=== PATIENT | male | born 1940 | race Caucasian/White ===

== ENCOUNTER 2018-07-23 15:04 | Inpatient (IN) | payer MEDICARE, OTHER ==
--- NOTE | 2018-07-23 16:37 | EDM.PDOC ---
ED HPI GENERAL MEDICAL PROBLEM - General Chief Complaint: Abdominal Pain Stated Complaint: LOW ABD PAIN Time Seen by Provider: 07/23/18 16:13 Source of Information: Reports: Patient, Family (), RN Notes Reviewed History Limitations: Reports: No Limitations - History of Present Illness INITIAL COMMENTS - FREE TEXT/NARRATIVE: The patient states that he developed lower abdominal/pelvic pain around 13:00 this afternoon. It is sharp in character. It is constant. The patient has not identified any modifiers. While here in the ED, the patient states that the pain is now radiating to his lower midline back. The patient reports decreased urine output for about one day, but denies associated dysuria, urinary urgency, or frequency. No recent fever. No recent nausea, vomiting, constipation, or diarrhea. No prior similar symptoms. The patient denies trying any [id number] or home remedies to treat his symptoms. The patient's last oral solid food was around noon today. The patient's PCP is Dr. Hunter Robbins. Lower Abdominal Pain Score (Numeric/FACES): 9 - Related Data Allergies Allergy/AdvReac Type Severity Reaction Status Date / Time No Known Allergies Allergy Verified 07/23/18 15:15 Home Meds: Home Meds Aspirin [Halfprin] 1 tab PO DAILY 09/27/14 [History] Enalapril [Vasotec] 1 tab PO DAILY 09/27/14 [History] hydroCHLOROthiazide [Hydrochlorothiazide] 1 tab PO DAILY 09/27/14 [History] Past Medical History Cardiovascular History: Reports: Hypertension Gastrointestinal History: Reports: Colon Polyp, Diverticulosis, GERD Genitourinary History: Reports: BPH Musculoskeletal History: Reports: Osteoarthritis Psychiatric History: Reports: Anxiety - Past Surgical History HEENT Surgical History: Reports: Detached Retina (right) GI Surgical History: Reports: Hernia, Inguinal (left x 2, right x 1) Male Surgical History: Reports: TURP-Transurethral Resection of Prostate Social & Family History - Tobacco Use Smoking Status *Q: Never Smoker - Caffeine Use Caffeine Use: Reports: None - Alcohol Use Alcohol Use History: No - Recreational Drug Use Recreational Drug Use: No - Living Situation & Occupation Living situation: Reports: , with Spouse Occupation: Retired ED ROS GENERAL - Review of Systems Review Of Systems: ROS reveals no pertinent complaints other than HPI. ED EXAM, GI/ABD - Physical Exam Exam: See Below Exam Limited By: No Limitations General Appearance: Alert, WD/WN, No Apparent Distress Eyes: Bilateral: Normal Appearance, EOMI Ears: Normal External Exam, Hearing Grossly Normal Nose: Normal Inspection Throat/Mouth: Normal Inspection, Normal Lips, Normal Voice, No Airway Compromise Head: Atraumatic, Normocephalic Neck: Normal Inspection, Full Range of Motion Respiratory/Chest: No Respiratory Distress, Lungs Clear, Normal Breath Sounds, No Accessory Muscle Use Cardiovascular: Normal Peripheral Pulses, Regular Rate, Rhythm, No Edema, No Gallop, No JVD, No Murmur, No Rub GI/Abdominal Exam: Normal Bowel Sounds, Soft, Non-Tender, No Organomegaly, No Distention, No Abnormal Bruit, No Mass (Male) Exam: Other (Large, firm right inguinal hernia, that I an unable to produce without causing excessive pain) Rectal (Males) Exam: Deferred Back Exam: Normal Inspection, Full Range of Motion. No: CVA Tenderness (L), CVA Tenderness (R) Extremities: Normal Inspection, Normal Range of Motion, No Pedal Edema, Normal Capillary Refill Neurological: Alert, Oriented, Normal Cognition, No Motor/Sensory Deficits Psychiatric: Normal Affect Skin Exam: Warm, Dry, Intact, Normal Color, No Rash Course - Vital Signs Last Recorded V/S: Last Vital Signs Temp 36.8 C 07/23/18 15:11 Pulse 59 L 07/23/18 15:11 Resp 18 07/23/18 15:11 BP 130/76 07/23/18 15:11 Pulse Ox 99 07/23/18 15:11 - Orders/Labs/Meds Orders: Active Orders 24 hr Category Date Time Status Bladder Scan [RC] ASDIRECTED Care 07/23/18 16:18 Active CBC WITH MANUAL DIFF [HEME] Stat Lab 07/23/18 16:05 Results Sodium Chloride 0.9% [Normal Saline] 1,000 ml Med 07/23/18 16:45 Active IV ASDIRECTED Medication Orders Sodium Chloride (Normal Saline) 1,000 mls @ 100 mls/hr IV ASDIRECTED [facility]ON Labs: Laboratory Tests 07/23/18 07/23/18 07/23/18 Range/Units 15:32 16:05 17:00 WBC 7.35 (4.23-9.07) K/mm3 RBC 5.25 (4.63-6.08) M/mm3 Hgb 16.0 (13.7-17.5) gm/L Hct 46.0 (40.1-51.0) % MCV 87.6 (79.0-92.2) fl MCH 30.5 (25.7-32.2) pg MCHC 34.8 (32.2-35.5) g/dl RDW Std Deviation 39.6 (35.1-43.9) fL Plt Count 158 L (163-337) K/mm3 MPV 8.8 L (9.4-12.3) fl Sodium 141 (136-145) mEq/L Potassium 3.8 (3.5-5.1) mEq/L Chloride 102 (98-107) mEq/L Carbon Dioxide 29 (21-32) mEq/L Anion Gap 13.8 (5-15) BUN 25 H (7-18) mg/dL Creatinine 1.3 (0.7-1.3) mg/dL Est Cr Clr Drug Dosing 52.23 mL/min Estimated GFR (MDRD) 54 (>60) mL/min BUN/Creatinine Ratio 19.2 H (14-18) Glucose 107 (83-115) mg/dL Calcium 9.5 (8.5-10.1) mg/dL Total Bilirubin 0.7 (0.2-1.0) mg/dL AST 26 (15-37) U/L ALT 39 (16-63) U/L Alkaline Phosphatase 59 (46-116) U/L Total Protein 7.5 (6.4-8.2) g/dl Albumin 4.1 (3.4-5.0) g/dl Globulin 3.4 gm/dL Albumin/Globulin Ratio 1.2 (1-2) Urine Color Yellow (Yellow) Urine Appearance Clear (Clear) Urine pH 7.0 (5.0-8.0) Ur Specific Waldo 1.020 (1.005-1.030) Urine Protein Negative (Negative) Urine Glucose (UA) Negative (Negative) Urine Ketones 1+ H (Negative) Urine Occult Blood Trace-lysed H (Negative) Urine Nitrite Negative (Negative) Urine Bilirubin Negative (Negative) Urine Urobilinogen 0.2 (0.2-1.0) Ur Leukocyte Esterase Negative (Negative) Urine RBC 0-5 (0-5) /hpf Urine WBC 0-5 (0-5) /hpf Ur Epithelial Cells Not seen (0-5) /hpf Urine Bacteria Rare (FEW) /hpf Urine Mucus Moderate H (FEW) /hpf Meds: Medications Generic Name Dose Route Start Last Admin Trade Name Ben PRN Reason Stop Dose Admin Sodium Chloride 1,000 mls @ 100 mls/hr 07/23/18 16:45 Normal Saline IV ASDIRECTED [facility] - Re-Assessments/Exams Free Text/Narrative Re-Assessment/Exam: 07/23/18 16:32 The patient appears to have a right anal hernia, likely incarcerated, as the cause of his symptoms. Case discussed with Dr. Nicole at 16:30. He will come to the ED to evaluate the patient. Hopefully, he will be able to reduce the hernia here in the ED, otherwise, the patient will need to go to the OR. I will order some IV fluid, and keep the patient npo. 07/23/18 17:17 Dr. Nicole is here. He has evaluated the patient, and will need to take the patient to the operating room. Departure - Departure Time of Disposition: 17:17 Disposition: DC/Tfer to [facility] Condition: Fair Clinical Impression: Incarcerated right inguinal hernia - Discharge Information *PRESCRIPTION DRUG MONITORING PROGRAM REVIEWED*: Not Applicable *COPY OF PRESCRIPTION DRUG MONITORING REPORT IN PATIENT REINA: Not Applicable Referrals: Hunter Robbins Jr, MD [Primary Care Provider] - Forms: ED Department Discharge - My Orders Last 24 Hours: My Active Orders 07/23/18 16:05 CBC WITH MANUAL DIFF [HEME] Stat 07/23/18 16:18 Bladder Scan [RC] ASDIRECTED 07/23/18 16:45 Sodium Chloride 0.9% [Normal Saline] 1,000 ml IV ASDIRECTED - Assessment/Plan Last 24 Hours: My Active Orders 07/23/18 16:05 CBC WITH MANUAL DIFF [HEME] Stat 07/23/18 16:18 Bladder Scan [RC] ASDIRECTED 07/23/18 16:45 Sodium Chloride 0.9% [Normal Saline] 1,000 ml IV ASDIRECTED
[2018-07-23] MEDS ORDERED: Sodium Chloride 0.9% 1,000 ML IV SCH (16:45)
[2018-07-23] MEDS ORDERED: Lidocaine 1% 4 ML ONE (17:39)
[2018-07-23] MEDS ORDERED: fentaNYL 250 MCG/5 ML SDV ONE (17:39)
[2018-07-23] MEDS ORDERED: Propofol 200 MG/20 ML SDV ONE ×2 (17:39→18:28)
[2018-07-23] MEDS ORDERED: Lidocaine 1% 50 ML MDV ONE (17:44)
[2018-07-23] MEDS ORDERED: Bupivacaine 0.5% 30 ML SDV ONE (17:44)
--- NOTE | 2018-07-23 17:52 | PCM.PREANE ---
Preanesthetic Assessment - Anesthesia/Transfusion/Family Hx Anesthesia History: Prior Anesthesia Without Reaction Family History of Anesthesia Reaction: No Transfusion History: No Prior Transfusion(s) - Review of Systems General: Fatigue Pulmonary: No Symptoms Cardiovascular: No Symptoms Gastrointestinal: Abdominal Pain (Lower abdomen), Nausea Neurological: No Symptoms Other: Reports: None - Physical Assessment NPO Status Date: 07/23/18 NPO Status Time: 12:30 Pulse: 59 O2 Sat by Pulse Oximetry: 99 Respiratory Rate: 18 Blood Pressure: 130/76 Temperature: 36.8 C Vital Signs: Last Vital Signs Temp 36.8 C 07/23/18 15:11 Pulse 59 L 07/23/18 15:11 Resp 18 07/23/18 15:11 BP 130/76 07/23/18 15:11 Pulse Ox 99 07/23/18 15:11 Height: 1.83 m Weight: 90.718 kg ASA Class: 2 Mental Status: Alert & Oriented x3 Airway Class: Mallampati = 1 Dentition: Reports: Missing Tooth/Teeth Thyro-Mental Finger Breadths: 3 Mouth Opening Finger Breadths: 3 ROM/Head Extension: Full Lungs: Clear to Auscultation, Normal Respiratory Effort Cardiovascular: Regular Rate, Regular Rhythm - Lab Values: Laboratory Last Values WBC 7.35 K/mm3 (4.23-9.07) 07/23/18 16:05 RBC 5.25 M/mm3 (4.63-6.08) 07/23/18 16:05 Hgb 16.0 gm/L (13.7-17.5) 07/23/18 16:05 Hct 46.0 % (40.1-51.0) 07/23/18 16:05 MCV 87.6 fl (79.0-92.2) 07/23/18 16:05 MCH 30.5 pg (25.7-32.2) 07/23/18 16:05 MCHC 34.8 g/dl (32.2-35.5) 07/23/18 16:05 RDW Std Deviation 39.6 fL (35.1-43.9) 07/23/18 16:05 Plt Count 158 K/mm3 (163-337) L 07/23/18 16:05 MPV 8.8 fl (9.4-12.3) L 07/23/18 16:05 Neutrophils % (Manual) 85 % (40-60) H 07/23/18 16:05 Band Neutrophils % 0 % (0-10) 07/23/18 16:05 Lymphocytes % (Manual) 14 % (20-40) L 07/23/18 16:05 Atypical Lymphs % 0 % 07/23/18 16:05 Monocytes % (Manual) 1 % (2-10) L 07/23/18 16:05 Eosinophils % (Manual) 0 % (0.8-7.0) L 07/23/18 16:05 Basophils % (Manual) 0 (0.2-1.2) L 07/23/18 16:05 Platelet Estimate Adequate 07/23/18 16:05 RBC Morph Comment Normal 07/23/18 16:05 Sodium 141 mEq/L (136-145) 07/23/18 17:00 Potassium 3.8 mEq/L (3.5-5.1) 07/23/18 17:00 Chloride 102 mEq/L (98-107) 07/23/18 17:00 Carbon Dioxide 29 mEq/L (21-32) 07/23/18 17:00 Anion Gap 13.8 (5-15) 07/23/18 17:00 BUN 25 mg/dL (7-18) H 07/23/18 17:00 Creatinine 1.3 mg/dL (0.7-1.3) 07/23/18 17:00 Est Cr Clr Drug Dosing 52.23 mL/min 07/23/18 17:00 Estimated GFR (MDRD) 54 mL/min (>60) 07/23/18 17:00 BUN/Creatinine Ratio 19.2 (14-18) H 07/23/18 17:00 Glucose 107 mg/dL (83-115) 07/23/18 17:00 Calcium 9.5 mg/dL (8.5-10.1) 07/23/18 17:00 Total Bilirubin 0.7 mg/dL (0.2-1.0) 07/23/18 17:00 AST 26 U/L (15-37) 07/23/18 17:00 ALT 39 U/L (16-63) 07/23/18 17:00 Alkaline Phosphatase 59 U/L (46-116) 07/23/18 17:00 Total Protein 7.5 g/dl (6.4-8.2) 07/23/18 17:00 Albumin 4.1 g/dl (3.4-5.0) 07/23/18 17:00 Globulin 3.4 gm/dL 07/23/18 17:00 Albumin/Globulin Ratio 1.2 (1-2) 07/23/18 17:00 Urine Color Yellow (Yellow) 07/23/18 15:32 Urine Appearance Clear (Clear) 07/23/18 15:32 Urine pH 7.0 (5.0-8.0) 07/23/18 15:32 Ur Specific Elmer 1.020 (1.005-1.030) 07/23/18 15:32 Urine Protein Negative (Negative) 07/23/18 15:32 Urine Glucose (UA) Negative (Negative) 07/23/18 15:32 Urine Ketones 1+ (Negative) H 07/23/18 15:32 Urine Occult Blood Trace-lysed (Negative) H 07/23/18 15:32 Urine Nitrite Negative (Negative) 07/23/18 15:32 Urine Bilirubin Negative (Negative) 07/23/18 15:32 Urine Urobilinogen 0.2 (0.2-1.0) 07/23/18 15:32 Ur Leukocyte Esterase Negative (Negative) 07/23/18 15:32 Urine RBC 0-5 /hpf (0-5) 07/23/18 15:32 Urine WBC 0-5 /hpf (0-5) 07/23/18 15:32 Ur Epithelial Cells Not seen /hpf (0-5) 07/23/18 15:32 Urine Bacteria Rare /hpf (FEW) 07/23/18 15:32 Urine Mucus Moderate /hpf (FEW) H 07/23/18 15:32 - Allergies Allergies/Adverse Reactions: Allergies Allergy/AdvReac Type Severity Reaction Status Date / Time No Known Allergies Allergy Verified 07/23/18 15:15 - Anesthesia Plan Pre-Op Medication Ordered: None - Acknowledgements Anesthesia Type Planned: MAC Pt an Appropriate Candidate for the Planned Anesthesia: Yes Alternatives and Risks of Anesthesia Discussed w Pt/Guardian: Yes Pt/Guardian Understands and Agrees with Anesthesia Plan: Yes PreAnesthesia Questionnaire - Past Health History Medical/Surgical History: Denies Medical/Surgical History Cardiovascular History: Reports: Hypertension Gastrointestinal History: Reports: Colon Polyp, Diverticulosis, GERD Genitourinary History: Reports: BPH Musculoskeletal History: Reports: Osteoarthritis Psychiatric History: Reports: Anxiety - Past Surgical History HEENT Surgical History: Reports: Detached Retina (right) GI Surgical History: Reports: Hernia, Inguinal (left x 2, right x 1) Male Surgical History: Reports: TURP-Transurethral Resection of Prostate - SUBSTANCE USE Smoking Status *Q: Never Smoker Tobacco Use Within Last Twelve Months: No Second Hand Smoke Exposure: No Days Per Week of Alcohol Use: 0 Number of Drinks Per Day: 0 Total Drinks Per Week: 0 Recreational Drug Use History: No - HOME MEDS Home Medications: Home Meds Aspirin [Halfprin] 81 mg PO DAILY 09/27/14 [History] Enalapril [Vasotec] 10 mg PO DAILY 09/27/14 [History] hydroCHLOROthiazide [Hydrochlorothiazide] 12.5 mg PO DAILY 09/27/14 [History] - CURRENT (IN HOUSE) MEDS Current Meds: Current Medications Sodium Chloride (Normal Saline) 1,000 mls @ 100 mls/hr IV ASDIRECTED [facility] Last Admin: 07/23/18 16:45 Dose: 100 mls/hr Discontinued Medications Bupivacaine HCl (Marcaine 0.5%) Confirm Administered Dose 30 ml .ROUTE .STK-MED ONE Stop: 07/23/18 17:45 Fentanyl (Sublimaze) Confirm Administered Dose 250 mcg .ROUTE .STK-MED ONE Stop: 07/23/18 17:40 Lidocaine HCl (Xylocaine-Mpf 1%) Confirm Administered Dose 4 mls @ as directed .ROUTE .STK-MED ONE Stop: 07/23/18 17:40 Lidocaine HCl (Xylocaine 1%) Confirm Administered Dose 50 ml .ROUTE .STK-MED ONE Stop: 07/23/18 17:45 Propofol (Diprivan 20 Ml) Confirm Administered Dose 200 mg .ROUTE .STK-MED ONE Stop: 07/23/18 17:40
[2018-07-23] MEDS ORDERED: Ketamine 500 mg/10 ML MDV ONE (18:06)
[2018-07-23] MEDS ORDERED: ceFAZolin 1 GM Vial ONE (18:16)
[2018-07-23] MEDS ORDERED: Rocuronium 50 MG/5 ML Vial ONE (19:04)
[2018-07-23] MEDS ORDERED: Lactated Ringers 1,000 ML ONE (19:04)
[2018-07-23] MEDS ORDERED: ePHEDrine/Normal Saline 25 MG/5 ML Syringe ONE (19:11)
--- NOTE | 2018-07-23 19:19 | HP ---
DATE OF ADMISSION: 07/23/2018 HISTORY OF PRESENT ILLNESS: This is a 78-year-old male at 1 o'clock this afternoon developed pain in the right groin. It started as a mass and then pain and was not improving, so he came into the emergency room where an incarcerated inguinal hernia was noted. He had had a previous repair in that area about 20 years ago. He was seen by his family doctor and noted a small recurrence, but was opted to wait and watch. He has also had hernia repairs x2 on the left side by . No mesh was used. PAST MEDICAL HISTORY: Current medical problems are hypertension, history of colonic polyps, BPH, osteoarthritis, history of anxiety. CURRENT MEDICATIONS: Reviewed per medication reconciliation form. PAST SURGICAL HISTORY: He has had a TURP, which has worked well. 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 SOCIAL HISTORY: Never smoked. ALLERGIES: No known allergies. REVIEW OF SYSTEMS: No chest pain, shortness of breath, cough, hoarseness, wheezing, fainting, weakness, numbness, convulsions, nausea, vomiting, or indigestion. PHYSICAL EXAMINATION: VITAL SIGNS: Temperature 36, pulse 59, respirations 18, blood pressure 130/76. HEENT: EYES: Sclerae white. Extraocular muscle motion normal. Oral Cavity: Healthy mucous membrane with mouth and tongue. NECK: Supple. No nodes. No thyromegaly. LUNGS: Clear. No rales, rhonchi, fremitus, or dullness. CARDIAC: Heart tones are regular rate. No S3, S4, or jugular venous distention. ABDOMEN: Soft. No tenderness, guarding, or rebound. The inguinal region shows 2 surgical scars on both inguinal sides. A right-sided bulge, which is tender on pushing, representing an inguinal hernia recurrence, which is incarcerated. EXTREMITIES: Upper and Lower Extremities: No angulation deformities. No sensorineural deficit. PSYCHIATRIC: Normal. NEUROLOGIC: Moves all 4 extremities. Cranial Nerves 1, 2, 3 through 12 intact. LABORATORY DATA: White count of 7000, hemoglobin 15, platelet count is a little low at 158. The estimated creatinine clearance is 54, creatinine 1.3, BUN is 25. Electrolytes normal. ASSESSMENT: Incarcerated right inguinal hernia. RECOMMENDATION: Exploring the right inguinal area and repair without mesh. Risks and complications were discussed, the patient understands and consents. MMODAL /[id number]
[2018-07-23] MEDS ORDERED: Ketorolac 30 MG/ML SDV ONE (20:07)
[2018-07-23] MEDS ORDERED: fentaNYL 100 MCG/2 ML SDV ONE (20:09)
[2018-07-23] MEDS ORDERED: fentaNYL 100 MCG/2 ML SDV IVPUSH PRN (20:26)
--- NOTE | 2018-07-23 20:27 | PCM.POSTAN ---
POST ANESTHESIA ASSESSMENT - MENTAL STATUS Mental Status: Alert, Oriented - VITAL SIGNS Pulse Rate: 80 SaO2: 94 Resp Rate: 10 Blood Pressure: 120/73 Temperature: 36.5 C - RESPIRATORY Respiratory Status: Respiratory Rate WNL, Airway Patent, O2 Saturation Stable, Supplemental Oxygen - CARDIOVASCULAR CV Status: Pulse Rate WNL, Blood Pressure Stable - GASTROINTESTINAL GI Status: No Symptoms - PAIN Pain Score: 0 - POST OP HYDRATION Hydration Status: Adequate & Stable - OBSERVATIONS Free Text/Narrative:: no anesthesia complications noted
--- NOTE | 2018-07-23 20:40 | PCM.OPNOTE ---
- General Post-Op/Procedure Note Date of Surgery/Procedure: 07/23/18 Operative Procedure(s): resection of small bowel and Dimas repair of femoral hernia Pre Op Diagnosis: rt inguinal hernia incacerated Post-Op Diagnosis: rt femeral hernia with incarceration and ilium Anesthesia Technique: General ET Tube Primary Surgeon: Torrey Nicole EBL in mLs: 50 Complications: None Condition: Good
[2018-07-23] MEDS ORDERED: HYDROmorphone 0.5 MG/0.5 ML Syringe IVPUSH PRN (21:07)
[2018-07-23] MEDS ORDERED: Ondansetron 4 MG/2 ML SDV IVPUSH PRN (21:07)
[2018-07-23] MEDS: Lactated Ringers 1,000 ML IV SCH (23:32)
--- NOTE | 2018-07-24 02:12 | OR ---
DATE OF OPERATION: 07/23/2018 SURGEON: Torrey Nicole MD PREOPERATIVE DIAGNOSIS: Incarcerated right inguinal hernia. POSTOPERATIVE DIAGNOSIS: Incarcerated femoral hernia with a knuckle of ileum. OPERATION PERFORMED: Resection of small bowel with anastomosis and Dimas femoral hernia repair. ANESTHESIA: Done under general anesthetic. ESTIMATED BLOOD LOSS: About 50 mL. DESCRIPTION OF PROCEDURE: The patient was taken to the operating room, placed in a supine position, connected to monitoring equipment, given IV sedation, antibiotics were given, and the inguinal region was then clipped and prepped with chlorhexidine alcohol prep, draped off in a sterile fashion. 0.5% Marcaine and 1% Xylocaine were infiltrated in the skin and deeper tissues as needed. The transverse previous incision was used and carried down by sharp dissection to the bulge in the inguinal region. Soft tissues were dissected free from the bulge and then the bulge was then opened up, showing a knuckle of gut, ileum and femoral hernia, which was tightly incarcerated. Loosening the femoral hernia by incising the inguinal ligament superiorly allowed the bowel to be mobilized, and using a ANNE MARIE stapler, the bowel was resected. The mesentery was taken down between curved hemostats, however, there was enough mobility of the bowel to allow proper anastomosis. It was elected at this time to intubate the patient and paralyze him. Once this was done, a transverse incision was made and enlarged in the inguinal ligament and this allowed better mobilization of the small bowel. The mesentery was then suture ligated, clamps were removed, and good hemostasis was obtained. Using the ANNE MARIE stapler, a [id number] anastomosis was accomplished by first taking the nipple off the antimesenteric border and sliding the 2 limbs and a ANNE MARIE 55 stapler in there and then bringing together and firing them. The bowel was then inspected, no bleeding was noted, and then a TA60 stapler was used to close this opening. This was then inspected and found to be healthy, and this completed the intraabdominal portion of the procedure. The bowel was allowed to fall back into the abdominal cavity. The area was irrigated and the instruments used for the bowel were then discarded. Surgeons re-gowned and re-gloved and the peritoneum was then closed with a running 3-0 Vicryl suture. With this completed, the Dimas hernia repair was then accomplished by first bringing the transverse incision of the inguinal ligament together with a running #1 0 PDS, then bringing the transversalis fascia and the inguinal ligament down to Mitesh's ligament with interrupted 2-0 Ethibond sutures. These were then tied once they are in place and a transition suture placed. A good repair was accomplished. Soft tissues were then irrigated and brought together with a running 3-0 Vicryl suture and the skin with a running subdermal 4-0 Dexon suture. Steri-Strips and sterile dressing were placed. The patient tolerated the procedure and sent to recovery room in a stable condition. SHAYY /[id number]
[2018-07-24] MEDS ORDERED: Lidocaine 2% Jelly 10 ML Urojet ONE (04:32)
[2018-07-24] MEDS ORDERED: HYDROmorphone 0.5 MG/0.5 ML Syringe IVPUSH PRN (04:44)
[2018-07-24] MEDS ORDERED: HYDROmorphone 1 MG/ML Syringe IV PRN (04:50)
--- NOTE | 2018-07-24 05:06 | PCM.SURGPN ---
- General Info Date of Service: 07/24/18 - Review of Systems Gastrointestinal: Reports: Other (pt was assisted to the bathroom when he felt faint and was placed on the floor and later placed in bed his VS showed BP of 70 and he then passed a small amount of bright red blood. This happened at 0345 I was called ) - Patient Data Vitals - Most Recent: Last Vital Signs Temp 99.0 F 07/24/18 02:12 Pulse 72 07/24/18 04:03 Resp 18 07/24/18 03:55 BP 116/81 07/24/18 04:03 Pulse Ox 99 07/24/18 04:03 Weight - Most Recent: 90.718 kg Lab Results Last 24 Hrs: Laboratory Results - last 24 hr 07/23/18 07/23/18 07/23/18 Range/Units 15:32 16:05 17:00 WBC 7.35 (4.23-9.07) K/mm3 RBC 5.25 (4.63-6.08) M/mm3 Hgb 16.0 (13.7-17.5) gm/L Hct 46.0 (40.1-51.0) % MCV 87.6 (79.0-92.2) fl MCH 30.5 (25.7-32.2) pg MCHC 34.8 (32.2-35.5) g/dl RDW Std Deviation 39.6 (35.1-43.9) fL Plt Count 158 L (163-337) K/mm3 MPV 8.8 L (9.4-12.3) fl Neutrophils % (Manual) 85 H (40-60) % Band Neutrophils % 0 (0-10) % Lymphocytes % (Manual) 14 L (20-40) % Atypical Lymphs % 0 % Monocytes % (Manual) 1 L (2-10) % Eosinophils % (Manual) 0 L (0.8-7.0) % Basophils % (Manual) 0 L (0.2-1.2) Platelet Estimate Adequate RBC Morph Comment Normal Sodium 141 (136-145) mEq/L Potassium 3.8 (3.5-5.1) mEq/L Chloride 102 (98-107) mEq/L Carbon Dioxide 29 (21-32) mEq/L Anion Gap 13.8 (5-15) BUN 25 H (7-18) mg/dL Creatinine 1.3 (0.7-1.3) mg/dL Est Cr Clr Drug Dosing 52.23 mL/min Estimated GFR (MDRD) 54 (>60) mL/min BUN/Creatinine Ratio 19.2 H (14-18) Glucose 107 (83-115) mg/dL Calcium 9.5 (8.5-10.1) mg/dL Total Bilirubin 0.7 (0.2-1.0) mg/dL AST 26 (15-37) U/L ALT 39 (16-63) U/L Alkaline Phosphatase 59 (46-116) U/L Total Protein 7.5 (6.4-8.2) g/dl Albumin 4.1 (3.4-5.0) g/dl Globulin 3.4 gm/dL Albumin/Globulin Ratio 1.2 (1-2) Urine Color Yellow (Yellow) Urine Appearance Clear (Clear) Urine pH 7.0 (5.0-8.0) Ur Specific [place] 1.020 (1.005-1.030) Urine Protein Negative (Negative) Urine Glucose (UA) Negative (Negative) Urine Ketones 1+ H (Negative) Urine Occult Blood Trace-lysed H (Negative) Urine Nitrite Negative (Negative) Urine Bilirubin Negative (Negative) Urine Urobilinogen 0.2 (0.2-1.0) Ur Leukocyte Esterase Negative (Negative) Urine RBC 0-5 (0-5) /hpf Urine WBC 0-5 (0-5) /hpf Ur Epithelial Cells Not seen (0-5) /hpf Urine Bacteria Rare (FEW) /hpf Urine Mucus Moderate H (FEW) /hpf 07/24/18 Range/Units 04:00 WBC (4.23-9.07) K/mm3 RBC (4.63-6.08) M/mm3 Hgb 13.2 L (13.7-17.5) gm/L Hct 38.6 L (40.1-51.0) % MCV (79.0-92.2) fl MCH (25.7-32.2) pg MCHC (32.2-35.5) g/dl RDW Std Deviation (35.1-43.9) fL Plt Count (163-337) K/mm3 MPV (9.4-12.3) fl Neutrophils % (Manual) (40-60) % Band Neutrophils % (0-10) % Lymphocytes % (Manual) (20-40) % Atypical Lymphs % % Monocytes % (Manual) (2-10) % Eosinophils % (Manual) (0.8-7.0) % Basophils % (Manual) (0.2-1.2) Platelet Estimate RBC Morph Comment Sodium (136-145) mEq/L Potassium (3.5-5.1) mEq/L Chloride (98-107) mEq/L Carbon Dioxide (21-32) mEq/L Anion Gap (5-15) BUN (7-18) mg/dL Creatinine (0.7-1.3) mg/dL Est Cr Clr Drug Dosing mL/min Estimated GFR (MDRD) (>60) mL/min BUN/Creatinine Ratio (14-18) Glucose (83-115) mg/dL Calcium (8.5-10.1) mg/dL Total Bilirubin (0.2-1.0) mg/dL AST (15-37) U/L ALT (16-63) U/L Alkaline Phosphatase (46-116) U/L Total Protein (6.4-8.2) g/dl Albumin (3.4-5.0) g/dl Globulin gm/dL Albumin/Globulin Ratio (1-2) Urine Color (Yellow) Urine Appearance (Clear) Urine pH (5.0-8.0) Ur Specific [place] (1.005-1.030) Urine Protein (Negative) Urine Glucose (UA) (Negative) Urine Ketones (Negative) Urine Occult Blood (Negative) Urine Nitrite (Negative) Urine Bilirubin (Negative) Urine Urobilinogen (0.2-1.0) Ur Leukocyte Esterase (Negative) Urine RBC (0-5) /hpf Urine WBC (0-5) /hpf Ur Epithelial Cells (0-5) /hpf Urine Bacteria (FEW) /hpf Urine Mucus (FEW) /hpf Med Orders - Current: Current Medications Enalapril Maleate (Vasotec) 10 mg PO DAILY [facility] Hydromorphone HCl (Dilaudid) 0.5 mg IVPUSH Q2H PRN PRN Reason: pain Last Admin: 07/24/18 04:52 Dose: 0.5 mg Lactated Ringer's (Ringers, Lactated) 1,000 mls @ 100 mls/hr IV ASDIRECTED [facility] Last Admin: 07/23/18 23:32 Dose: 100 mls/hr Ondansetron HCl (Zofran) 4 mg IVPUSH Q8H PRN PRN Reason: Nausea Discontinued Medications Bupivacaine HCl (Marcaine 0.5%) Confirm Administered Dose 30 ml .ROUTE .STK-MED ONE Stop: 07/23/18 17:45 Last Admin: 07/23/18 19:52 Dose: 10 ml Cefazolin Sodium (Ancef) Confirm Administered Dose 2 gm .ROUTE [email or web address] ONE Stop: 07/23/18 18:17 Ephedrine Sulfate (Ephedrine In Ns) Confirm Administered Dose 25 mg .ROUTE [email or web address] ONE Stop: 07/23/18 19:12 Fentanyl (Sublimaze) Confirm Administered Dose 250 mcg .ROUTE [email or web address] ONE Stop: 07/23/18 17:40 Fentanyl (Sublimaze) Confirm Administered Dose 100 mcg .ROUTE [email or web address] ONE Stop: 07/23/18 20:10 Fentanyl (Sublimaze) 50 mcg IVPUSH Q5M PRN PRN Reason: Pain Hydromorphone HCl (Dilaudid) 0.5 mg IVPUSH Q2H PRN PRN Reason: Pain Hydromorphone HCl (Dilaudid) 0.5 mg IV Q2H PRN PRN Reason: pain Sodium Chloride (Normal Saline) 1,000 mls @ 100 mls/hr IV ASDIRECTED [facility] Last Admin: 07/23/18 16:45 Dose: 100 mls/hr Lidocaine HCl (Xylocaine-Mpf 1%) Confirm Administered Dose 4 mls @ as directed .ROUTE [email or web address] ONE Stop: 07/23/18 17:40 Lactated Ringer's (Ringers, Lactated) Confirm Administered Dose 1,000 mls @ as directed .ROUTE [email or web address] ONE Stop: 07/23/18 19:05 Ketamine HCl (Ketalar) Confirm Administered Dose 500 mg .ROUTE [email or web address] ONE Stop: 07/23/18 18:07 Ketorolac Tromethamine (Toradol) Confirm Administered Dose 30 mg .ROUTE [email or web address] ONE Stop: 07/23/18 20:08 Lidocaine HCl (Xylocaine 1%) Confirm Administered Dose 50 ml .ROUTE [email or web address] ONE Stop: 07/23/18 17:45 Last Admin: 07/23/18 19:52 Dose: 10 ml Lidocaine HCl (Xylocaine 2% Jelly) Confirm Administered Dose 10 ml .ROUTE .STK- MED ONE Stop: 07/24/18 04:33 Propofol (Diprivan 20 Ml) Confirm Administered Dose 200 mg .ROUTE .STK-MED ONE Stop: 07/23/18 17:40 Propofol (Diprivan 20 Ml) Confirm Administered Dose 200 mg .ROUTE .STK-MED ONE Stop: 07/23/18 18:29 Rocuronium [place] (Zemuron) Confirm Administered Dose 50 mg .ROUTE .STK-MED ONE Stop: 07/23/18 19:05 - Exam Wound/Incisions: Healing Well, Dressing Dry and Intact General: Mild Distress GI/Abdominal Exam: Distended, Other (fullness arond the bladder (pt had not yet passed urine and bladder scan showed 450 cc ) Skin: Warm, Dry - Problem List Review Problem List Initiated/Reviewed/Updated: Yes - My Orders Last 24 Hours: Active Orders 24 hr Category Date Time Status Patient Status [ADT] Routine ADT 07/24/18 04:06 Active Ambulate [RC] ASDIRECTED Care 07/23/18 21:07 Active Antiembolic Devices [RC] QSHIFT Care 07/23/18 21:07 Active Bladder Scan [RC] ONETIME Care 07/23/18 16:18 Active Communication Order [RC] ASDIRECTED Care 07/23/18 20:50 Active Communication Order [RC] ROUTINE Care 07/23/18 20:26 Active Notify Provider [RC] ASDIRECTED Care 07/23/18 20:26 Active Oxygen Therapy [RC] ASDIRECTED Care 07/23/18 20:26 Active Pulse Oximetry [RC] ASDIRECTED Care 07/23/18 20:26 Active Turn, Cough, Deep Breathe [RC] .PRN Care 07/23/18 21:07 Active Nothing Per Oral Diet [DIET] Diet 07/23/18 Breakfast Active RED BLOOD CELLS LP [BBK] Routine Lab 07/24/18 04:00 Received TYPE AND SCREEN [BBK] Routine Lab 07/24/18 04:00 Received UA W/MICROSCOPIC [URIN] Routine Lab 07/24/18 04:39 Ordered Enalapril [Vasotec] Med 07/24/18 09:00 Active 10 mg PO DAILY HYDROmorphone [Dilaudid] Med 07/24/18 06:50 Active 0.5 mg IVPUSH Q2H PRN Lactated Ringers [Ringers, Lactated] 1,000 ml Med 07/23/18 21:00 Active IV ASDIRECTED Ondansetron [Zofran] Med 07/23/18 21:07 Active 4 mg IVPUSH Q8H PRN SCD [Sequential Compression Device] [OM.PC] Routine Oth 07/23/18 21:07 Ordered Schedule Procedure [COMM] Stat Oth 07/23/18 17:31 Ordered Transfuse RBC [Transfuse Red Blood Cells] [COMM] Stat Ot 07/24/18 04:01 Ordered Resuscitation Status Routine Resus Stat 07/23/18 21:44 Ordered Medication Orders Enalapril Maleate (Vasotec) 10 mg PO DAILY [facility] Hydromorphone HCl (Dilaudid) 0.5 mg IVPUSH Q2H PRN PRN Reason: pain Last Admin: 07/24/18 04:52 Dose: 0.5 mg Lactated Ringer's (Ringers, Lactated) 1,000 mls @ 100 mls/hr IV ASDIRECTED [facility] Last Admin: 07/23/18 23:32 Dose: 100 mls/hr Ondansetron HCl (Zofran) 4 mg IVPUSH Q8H PRN PRN Reason: Nausea - Plan Plan (Free Text/Narrative):: Hb 13 ass Vago/Vago episode pt given pain medications and and urinary bladder emptied with a straight cath of 450cc patient feeling better plan give dialuid and will re check HBJMB
[2018-07-24] MEDS: Lactated Ringers 1,000 ML IV SCH (05:11)
[2018-07-24] MEDS ORDERED: HYDROmorphone 1 MG/ML Syringe IVPUSH PRN (06:50)
--- NOTE | 2018-07-24 09:26 | PCM48HPAN ---
Post Anesthesia Note - EVALUATION WITHIN 48HRS OF ANESTHETIC Vital Signs in Normal Range: Yes Patient Participated in Evaluation: Yes Respiratory Function Stable: Yes (O2 on this am- Patient lying in bed. family present) Airway Patent: Yes Cardiovascular Function Stable: Yes Hydration Status Stable: Yes Pain Control Satisfactory: Yes (denies incisional pain) Nausea and Vomiting Control Satisfactory: Yes Mental Status Recovered: Yes Pulse Rate: 70 Resp Rate: 19 Temperature: 99.0 F Blood Pressure: 103/62 - COMMENTS/OBSERVATIONS Free Text/Narrative:: Patient states passed out this am at 3 while up to the bathroom. Feels much better now. Some nausea last night- better now. Skin warm dry. Family here. States anesthesia was fine. Doesn't remember anything.
[2018-07-24] MEDS ORDERED: Acetaminophen/HYDROcodone 325-5 MG Tab PO PRN (11:02)
[2018-07-24] MEDS ORDERED: Sodium Chloride 0.9% 1,000 ML ONE (11:11)
[2018-07-24] MEDS ORDERED: Sodium Chloride 0.9% 1,000 ML IV SCH (11:15)
--- NOTE | 2018-07-24 11:47 | PCM.SURGPN ---
- General Info Date of Service: 07/24/18 Functional Status: Reports: Pain Controlled - Review of Systems Gastrointestinal: Reports: Other (dark blood from rectum ) - Patient Data Vitals - Most Recent: Last Vital Signs Temp 99.0 F 07/24/18 09:26 Pulse 70 07/24/18 09:26 Resp 19 07/24/18 09:26 BP 103/62 07/24/18 09:26 Pulse Ox 99 07/24/18 06:01 Weight - Most Recent: 90.718 kg I&O - Last 24 Hours: Intake & Output 07/23/18 07/24/18 07/24/18 23:59 07:59 15:59 Intake Total 1175 Output Total 1000 Balance 175 Lab Results Last 24 Hrs: Laboratory Results - last 24 hr 07/23/18 07/23/18 07/23/18 Range/Units 15:32 16:05 17:00 WBC 7.35 (4.23-9.07) K/mm3 RBC 5.25 (4.63-6.08) M/mm3 Hgb 16.0 (13.7-17.5) gm/L Hct 46.0 (40.1-51.0) % MCV 87.6 (79.0-92.2) fl MCH 30.5 (25.7-32.2) pg MCHC 34.8 (32.2-35.5) g/dl RDW Std Deviation 39.6 (35.1-43.9) fL Plt Count 158 L (163-337) K/mm3 MPV 8.8 L (9.4-12.3) fl Neut % (Auto) (34.0-67.9) % Lymph % (Auto) (21.8-53.1) % [place] % (Auto) (5.3-12.2) % Eos % (Auto) (0.8-7.0) Baso % (Auto) (0.1-1.2) % Neut # (Auto) (1.78-5.38) K/mm3 Lymph # (Auto) (1.32-3.57) K/mm3 [place] # (Auto) (0.30-0.82) K/mm3 Eos # (Auto) (0.04-0.54) K/mm3 Baso # (Auto) (0.01-0.08) K/mm3 Neutrophils % (Manual) 85 H (40-60) % Band Neutrophils % 0 (0-10) % Lymphocytes % (Manual) 14 L (20-40) % Atypical Lymphs % 0 % Monocytes % (Manual) 1 L (2-10) % Eosinophils % (Manual) 0 L (0.8-7.0) % Basophils % (Manual) 0 L (0.2-1.2) Platelet Estimate Adequate RBC Morph Comment Normal Sodium 141 (136-145) mEq/L Potassium 3.8 (3.5-5.1) mEq/L Chloride 102 (98-107) mEq/L Carbon Dioxide 29 (21-32) mEq/L Anion Gap 13.8 (5-15) BUN 25 H (7-18) mg/dL Creatinine 1.3 (0.7-1.3) mg/dL Est Cr Clr Drug Dosing 52.23 mL/min Estimated GFR (MDRD) 54 (>60) mL/min BUN/Creatinine Ratio 19.2 H (14-18) Glucose 107 (83-115) mg/dL Calcium 9.5 (8.5-10.1) mg/dL Total Bilirubin 0.7 (0.2-1.0) mg/dL AST 26 (15-37) U/L ALT 39 (16-63) U/L Alkaline Phosphatase 59 (46-116) U/L Total Protein 7.5 (6.4-8.2) g/dl Albumin 4.1 (3.4-5.0) g/dl Globulin 3.4 gm/dL Albumin/Globulin Ratio 1.2 (1-2) Urine Color Yellow (Yellow) Urine Appearance Clear (Clear) Urine pH 7.0 (5.0-8.0) Ur Specific [place] 1.020 (1.005-1.030) Urine Protein Negative (Negative) Urine Glucose (UA) Negative (Negative) Urine Ketones 1+ H (Negative) Urine Occult Blood Trace-lysed H (Negative) Urine Nitrite Negative (Negative) Urine Bilirubin Negative (Negative) Urine Urobilinogen 0.2 (0.2-1.0) Ur Leukocyte Esterase Negative (Negative) Urine RBC 0-5 (0-5) /hpf Urine WBC 0-5 (0-5) /hpf Ur Epithelial Cells Not seen (0-5) /hpf Urine Bacteria Rare (FEW) /hpf Urine Mucus Moderate H (FEW) /hpf Blood Type Gel Antibody Screen Crossmatch 07/24/18 07/24/18 07/24/18 Range/Units 04:00 04:00 04:45 WBC (4.23-9.07) K/mm3 RBC (4.63-6.08) M/mm3 Hgb 13.2 L (13.7-17.5) gm/L Hct 38.6 L (40.1-51.0) % MCV (79.0-92.2) fl MCH (25.7-32.2) pg MCHC (32.2-35.5) g/dl RDW Std Deviation (35.1-43.9) fL Plt Count (163-337) K/mm3 MPV (9.4-12.3) fl Neut % (Auto) (34.0-67.9) % Lymph % (Auto) (21.8-53.1) % [place] % (Auto) (5.3-12.2) % Eos % (Auto) (0.8-7.0) Baso % (Auto) (0.1-1.2) % Neut # (Auto) (1.78-5.38) K/mm3 Lymph # (Auto) (1.32-3.57) K/mm3 [place] # (Auto) (0.30-0.82) K/mm3 Eos # (Auto) (0.04-0.54) K/mm3 Baso # (Auto) (0.01-0.08) K/mm3 Neutrophils % (Manual) (40-60) % Band Neutrophils % (0-10) % Lymphocytes % (Manual) (20-40) % Atypical Lymphs % % Monocytes % (Manual) (2-10) % Eosinophils % (Manual) (0.8-7.0) % Basophils % (Manual) (0.2-1.2) Platelet Estimate RBC Morph Comment Sodium (136-145) mEq/L Potassium (3.5-5.1) mEq/L Chloride (98-107) mEq/L Carbon Dioxide (21-32) mEq/L Anion Gap (5-15) BUN (7-18) mg/dL Creatinine (0.7-1.3) mg/dL Est Cr Clr Drug Dosing mL/min Estimated GFR (MDRD) (>60) mL/min BUN/Creatinine Ratio (14-18) Glucose (83-115) mg/dL Calcium (8.5-10.1) mg/dL Total Bilirubin (0.2-1.0) mg/dL AST (15-37) U/L ALT (16-63) U/L Alkaline Phosphatase (46-116) U/L Total Protein (6.4-8.2) g/dl Albumin (3.4-5.0) g/dl Globulin gm/dL Albumin/Globulin Ratio (1-2) Urine Color Yellow (Yellow) Urine Appearance Clear (Clear) Urine pH 6.5 (5.0-8.0) Ur Specific [place] > or = 1.030 (1.005-1.030) Urine Protein Negative (Negative) Urine Glucose (UA) Negative (Negative) Urine Ketones 2+ H (Negative) Urine Occult Blood Negative (Negative) Urine Nitrite Negative (Negative) Urine Bilirubin Negative (Negative) Urine Urobilinogen 0.2 (0.2-1.0) Ur Leukocyte Esterase Negative (Negative) Urine RBC 0-5 (0-5) /hpf Urine WBC 0-5 (0-5) /hpf Ur Epithelial Cells 0-5 (0-5) /hpf Urine Bacteria Few (FEW) /hpf Urine Mucus Not seen (FEW) /hpf Blood Type O NEGATIVE Gel Antibody Screen Negative Crossmatch See Detail 07/24/18 Range/Units 11:16 WBC 11.26 H (4.23-9.07) K/mm3 RBC 3.98 L (4.63-6.08) M/mm3 Hgb 12.2 L (13.7-17.5) gm/L Hct 35.9 L (40.1-51.0) % MCV 90.2 (79.0-92.2) fl MCH 30.7 (25.7-32.2) pg MCHC 34.0 (32.2-35.5) g/dl RDW Std Deviation 40.5 (35.1-43.9) fL Plt Count 193 (163-337) K/mm3 MPV 9.4 (9.4-12.3) fl Neut % (Auto) 78.3 H (34.0-67.9) % Lymph % (Auto) 12.7 L (21.8-53.1) % [place] % (Auto) 8.6 (5.3-12.2) % Eos % (Auto) 0.1 L (0.8-7.0) Baso % (Auto) 0.1 (0.1-1.2) % Neut # (Auto) 8.82 H (1.78-5.38) K/mm3 Lymph # (Auto) 1.43 (1.32-3.57) K/mm3 [place] # (Auto) 0.97 H (0.30-0.82) K/mm3 Eos # (Auto) 0.01 L (0.04-0.54) K/mm3 Baso # (Auto) 0.01 (0.01-0.08) K/mm3 Neutrophils % (Manual) (40-60) % Band Neutrophils % (0-10) % Lymphocytes % (Manual) (20-40) % Atypical Lymphs % % Monocytes % (Manual) (2-10) % Eosinophils % (Manual) (0.8-7.0) % Basophils % (Manual) (0.2-1.2) Platelet Estimate RBC Morph Comment Sodium (136-145) mEq/L Potassium (3.5-5.1) mEq/L Chloride (98-107) mEq/L Carbon Dioxide (21-32) mEq/L Anion Gap (5-15) BUN (7-18) mg/dL Creatinine (0.7-1.3) mg/dL Est Cr Clr Drug Dosing mL/min Estimated GFR (MDRD) (>60) mL/min BUN/Creatinine Ratio (14-18) Glucose (83-115) mg/dL Calcium (8.5-10.1) mg/dL Total Bilirubin (0.2-1.0) mg/dL AST (15-37) U/L ALT (16-63) U/L Alkaline Phosphatase (46-116) U/L Total Protein (6.4-8.2) g/dl Albumin (3.4-5.0) g/dl Globulin gm/dL Albumin/Globulin Ratio (1-2) Urine Color (Yellow) Urine Appearance (Clear) Urine pH (5.0-8.0) Ur Specific [place] (1.005-1.030) Urine Protein (Negative) Urine Glucose (UA) (Negative) Urine Ketones (Negative) Urine Occult Blood (Negative) Urine Nitrite (Negative) Urine Bilirubin (Negative) Urine Urobilinogen (0.2-1.0) Ur Leukocyte Esterase (Negative) Urine RBC (0-5) /hpf Urine WBC (0-5) /hpf Ur Epithelial Cells (0-5) /hpf Urine Bacteria (FEW) /hpf Urine Mucus (FEW) /hpf Blood Type Gel Antibody Screen Crossmatch Med Orders - Current: Current Medications Hydrocodone Bitart/Acetaminophen ([place] 325-5 Mg) 1 tab PO Q4HR PRN PRN Reason: Pain Enalapril Maleate (Vasotec) 10 mg PO DAILY [facility] Last Admin: 07/24/18 10:37 Dose: Not Given Hydromorphone HCl (Dilaudid) 0.5 mg IVPUSH Q2H PRN PRN Reason: pain Last Admin: 07/24/18 04:52 Dose: 0.5 mg Lactated Ringer's (Ringers, Lactated) 1,000 mls @ 100 mls/hr IV ASDIRECTED [facility] Last Admin: 07/24/18 05:11 Dose: 100 mls/hr Sodium Chloride (Normal Saline) 1,000 mls @ 100 mls/hr IV ASDIRECTED [facility] Ondansetron HCl (Zofran) 4 mg IVPUSH Q8H PRN PRN Reason: Nausea Discontinued Medications Bupivacaine HCl (Marcaine 0.5%) Confirm Administered Dose 30 ml .ROUTE .STK-MED ONE Stop: 07/23/18 17:45 Last Admin: 07/23/18 19:52 Dose: 10 ml Cefazolin Sodium (Ancef) Confirm Administered Dose 2 gm .ROUTE .STK-MED ONE Stop: 07/23/18 18:17 Ephedrine Sulfate (Ephedrine In Ns) Confirm Administered Dose 25 mg .ROUTE .STK- MED ONE Stop: 07/23/18 19:12 Fentanyl (Sublimaze) Confirm Administered Dose 250 mcg .ROUTE .STK-MED ONE Stop: 07/23/18 17:40 Fentanyl (Sublimaze) Confirm Administered Dose 100 mcg .ROUTE .STK-MED ONE Stop: 07/23/18 20:10 Fentanyl (Sublimaze) 50 mcg IVPUSH Q5M PRN PRN Reason: Pain Hydromorphone HCl (Dilaudid) 0.5 mg IVPUSH Q2H PRN PRN Reason: Pain Hydromorphone HCl (Dilaudid) 0.5 mg IV Q2H PRN PRN Reason: pain Sodium Chloride (Normal Saline) 1,000 mls @ 100 mls/hr IV ASDIRECTED [facility] Last Admin: 07/23/18 16:45 Dose: 100 mls/hr Lidocaine HCl (Xylocaine-Mpf 1%) Confirm Administered Dose 4 mls @ as directed .ROUTE .STK-MED ONE Stop: 07/23/18 17:40 Lactated Ringer's (Ringers, Lactated) Confirm Administered Dose 1,000 mls @ as directed .ROUTE .STK-MED ONE Stop: 07/23/18 19:05 Sodium Chloride (Normal Saline) Confirm Administered Dose 1,000 mls @ as directed .ROUTE .STK-MED ONE Stop: 07/24/18 11:12 Ketamine HCl (Ketalar) Confirm Administered Dose 500 mg .ROUTE .STK-MED ONE Stop: 07/23/18 18:07 Ketorolac Tromethamine (Toradol) Confirm Administered Dose 30 mg .ROUTE .STK- MED ONE Stop: 07/23/18 20:08 Lidocaine HCl (Xylocaine 1%) Confirm Administered Dose 50 ml .ROUTE .STK-MED ONE Stop: 07/23/18 17:45 Last Admin: 07/23/18 19:52 Dose: 10 ml Lidocaine HCl (Xylocaine 2% Jelly) Confirm Administered Dose 10 ml .ROUTE .STK- MED ONE Stop: 07/24/18 04:33 Last Admin: 07/24/18 10:37 Dose: Not Given Propofol (Diprivan 20 Ml) Confirm Administered Dose 200 mg .ROUTE .STK-MED ONE Stop: 07/23/18 17:40 Propofol (Diprivan 20 Ml) Confirm Administered Dose 200 mg .ROUTE .STK-MED ONE Stop: 07/23/18 18:29 Rocuronium [place] (Zemuron) Confirm Administered Dose 50 mg .ROUTE .STK-MED ONE Stop: 07/23/18 19:05 - Exam Wound/Incisions: Healing Well Cardiovascular: Regular Rate, Other (postural dropp in BP with sitting at bed side ) GI/Abdominal Exam: Other (rectal bleeding of tary stool ) - Problem List Review Problem List Initiated/Reviewed/Updated: Yes - My Orders Last 24 Hours: Active Orders 24 hr Category Date Time Status Patient Status [ADT] Routine ADT 07/24/18 04:06 Active Ambulate [RC] ASDIRECTED Care 07/23/18 21:07 Active Antiembolic Devices [RC] QSHIFT Care 07/23/18 21:07 Active Bladder Scan [RC] ONETIME Care 07/23/18 16:18 Active Communication Order [RC] ASDIRECTED Care 07/23/18 20:50 Active Communication Order [RC] DAILY Care 07/24/18 08:00 Active Communication Order [RC] ROUTINE Care 07/23/18 20:26 Inactive Notify Provider [RC] ASDIRECTED Care 07/23/18 20:26 Active Oxygen Therapy [RC] ASDIRECTED Care 07/23/18 20:26 Active Pulse Oximetry [RC] ASDIRECTED Care 07/23/18 20:26 Active Turn, Cough, Deep Breathe [RC] .PRN Care 07/23/18 21:07 Active Clear Liquid Diet [DIET] Diet 07/24/18 Lunch Active RED BLOOD CELLS LP [BBK] Routine Lab 07/24/18 04:00 Results TYPE AND SCREEN [BBK] Routine Lab 07/24/18 04:00 Results Acetaminophen/HYDROcodone [[place] 325-5 MG] Med 07/24/18 11:02 Active 1 tab PO Q4HR PRN Enalapril [Vasotec] Med 07/24/18 09:00 Active 10 mg PO DAILY HYDROmorphone [Dilaudid] Med 07/24/18 06:50 Active 0.5 mg IVPUSH Q2H PRN Lactated Ringers [Ringers, Lactated] 1,000 ml Med 07/23/18 21:00 Active IV ASDIRECTED Ondansetron [Zofran] Med 07/23/18 21:07 Active 4 mg IVPUSH Q8H PRN Sodium Chloride 0.9% [Normal Saline] 1,000 ml Med 07/24/18 11:15 Active IV ASDIRECTED SCD [Sequential Compression Device] [OM.PC] Routine Oth 07/23/18 21:07 Ordered Schedule Procedure [COMM] Stat Oth 07/23/18 17:31 Ordered Transfuse RBC [Transfuse Red Blood Cells] [COMM] Stat Oth 07/24/18 11:07 Ordered Resuscitation Status Routine Resus Stat 07/23/18 21:44 Ordered Medication Orders Hydrocodone Bitart/Acetaminophen ([place] 325-5 Mg) 1 tab PO Q4HR PRN PRN Reason: Pain Enalapril Maleate (Vasotec) 10 mg PO DAILY [facility] Last Admin: 07/24/18 10:37 Dose: Not Given Hydromorphone HCl (Dilaudid) 0.5 mg IVPUSH Q2H PRN PRN Reason: pain Last Admin: 07/24/18 04:52 Dose: 0.5 mg Lactated Ringer's (Ringers, Lactated) 1,000 mls @ 100 mls/hr IV ASDIRECTED [facility] Last Admin: 07/24/18 05:11 Dose: 100 mls/hr Infusion: 07/24/18 05:11 Dose: 100 mls/hr Admin: 07/23/18 23:32 Dose: 100 mls/hr Sodium Chloride (Normal Saline) 1,000 mls @ 100 mls/hr IV ASDIRECTED [facility] Ondansetron HCl (Zofran) 4 mg IVPUSH Q8H PRN PRN Reason: Nausea - Plan Plan (Free Text/Narrative):: pt HB has dropped from 16 to 13 ass Bleeding from the staple line plan observation and transfuse 23 units will doo q 6 H&H and bed rest
[2018-07-24] MEDS: Morphine 2 MG/ML Syringe IVPUSH PRN ×2 (12:23→19:16)
[2018-07-24] MEDS: Sodium Chloride 0.9% 1,000 ML IV SCH (12:23)
[2018-07-24] MEDS: Tamsulosin 0.4 MG Cap.ER PO SCH (17:19)
[2018-07-25] MEDS: Sodium Chloride 0.9% 1,000 ML IV SCH (02:57)
--- NOTE | 2018-07-25 04:11 | PCM.SURGPN ---
- General Info Date of Service: 07/25/18 POD#: 2 Functional Status: Reports: Pain Controlled - Review of Systems General: Reports: No Symptoms Cardiovascular: Reports: Other (no futher tarry stools) - Patient Data Vitals - Most Recent: Last Vital Signs Temp 98.4 F 07/25/18 02:59 Pulse 80 07/25/18 02:59 Resp 19 07/25/18 02:59 BP 114/60 07/25/18 02:59 Pulse Ox 97 07/25/18 02:59 Weight - Most Recent: 90.718 kg I&O - Last 24 Hours: Intake & Output 07/24/18 07/24/18 07/25/18 15:59 23:59 07:59 Intake Total 316 1453 Output Total 440 Balance 316 1013 Lab Results Last 24 Hrs: Laboratory Results - last 24 hr 07/24/18 07/24/18 07/24/18 Range/Units 04:00 04:00 04:45 WBC (4.23-9.07) K/mm3 RBC (4.63-6.08) M/mm3 Hgb 13.2 L (13.7-17.5) gm/L Hct 38.6 L (40.1-51.0) % MCV (79.0-92.2) fl MCH (25.7-32.2) pg MCHC (32.2-35.5) g/dl RDW Std Deviation (35.1-43.9) fL Plt Count (163-337) K/mm3 MPV (9.4-12.3) fl Neut % (Auto) (34.0-67.9) % Lymph % (Auto) (21.8-53.1) % Price % (Auto) (5.3-12.2) % Eos % (Auto) (0.8-7.0) Baso % (Auto) (0.1-1.2) % Neut # (Auto) (1.78-5.38) K/mm3 Lymph # (Auto) (1.32-3.57) K/mm3 Price # (Auto) (0.30-0.82) K/mm3 Eos # (Auto) (0.04-0.54) K/mm3 Baso # (Auto) (0.01-0.08) K/mm3 Urine Color Yellow (Yellow) Urine Appearance Clear (Clear) Urine pH 6.5 (5.0-8.0) Ur Specific Kouts > or = 1.030 (1.005-1.030) Urine Protein Negative (Negative) Urine Glucose (UA) Negative (Negative) Urine Ketones 2+ H (Negative) Urine Occult Blood Negative (Negative) Urine Nitrite Negative (Negative) Urine Bilirubin Negative (Negative) Urine Urobilinogen 0.2 (0.2-1.0) Ur Leukocyte Esterase Negative (Negative) Urine RBC 0-5 (0-5) /hpf Urine WBC 0-5 (0-5) /hpf Ur Epithelial Cells 0-5 (0-5) /hpf Urine Bacteria Few (FEW) /hpf Urine Mucus Not seen (FEW) /hpf Blood Type O NEGATIVE Gel Antibody Screen Negative Crossmatch See Detail 07/24/18 07/24/18 07/24/18 Range/Units 11:16 17:05 22:59 WBC 11.26 H (4.23-9.07) K/mm3 RBC 3.98 L (4.63-6.08) M/mm3 Hgb 12.2 L 13.3 L 13.3 L (13.7-17.5) gm/L Hct 35.9 L 39.5 L 39.3 L (40.1-51.0) % MCV 90.2 (79.0-92.2) fl MCH 30.7 (25.7-32.2) pg MCHC 34.0 (32.2-35.5) g/dl RDW Std Deviation 40.5 (35.1-43.9) fL Plt Count 193 (163-337) K/mm3 MPV 9.4 (9.4-12.3) fl Neut % (Auto) 78.3 H (34.0-67.9) % Lymph % (Auto) 12.7 L (21.8-53.1) % Price % (Auto) 8.6 (5.3-12.2) % Eos % (Auto) 0.1 L (0.8-7.0) Baso % (Auto) 0.1 (0.1-1.2) % Neut # (Auto) 8.82 H (1.78-5.38) K/mm3 Lymph # (Auto) 1.43 (1.32-3.57) K/mm3 Price # (Auto) 0.97 H (0.30-0.82) K/mm3 Eos # (Auto) 0.01 L (0.04-0.54) K/mm3 Baso # (Auto) 0.01 (0.01-0.08) K/mm3 Urine Color (Yellow) Urine Appearance (Clear) Urine pH (5.0-8.0) Ur Specific K[place] (1.005-1.030) Urine Protein (Negative) Urine Glucose (UA) (Negative) Urine Ketones (Negative) Urine Occult Blood (Negative) Urine Nitrite (Negative) Urine Bilirubin (Negative) Urine Urobilinogen (0.2-1.0) Ur Leukocyte Esterase (Negative) Urine RBC (0-5) /hpf Urine WBC (0-5) /hpf Ur Epithelial Cells (0-5) /hpf Urine Bacteria (FEW) /hpf Urine Mucus (FEW) /hpf Blood Type Gel Antibody Screen Crossmatch Med Orders - Current: Current Medications Enalapril Maleate (Vasotec) 10 mg PO DAILY [facility] Last Admin: 07/24/18 10:37 Dose: Not Given Sodium Chloride (Normal Saline) 1,000 mls @ 80 mls/hr IV ASDIRECTED [facility] Last Admin: 07/25/18 02:57 Dose: 80 mls/hr Morphine Sulfate (Morphine) 1 mg IVPUSH Q2H PRN PRN Reason: Pain Last Admin: 07/24/18 19:16 Dose: 1 mg Ondansetron HCl (Zofran) 4 mg IVPUSH Q8H PRN PRN Reason: Nausea Tamsulosin HCl (Flomax) 0.4 mg PO DAILY [facility] Last Admin: 07/24/18 17:19 Dose: 0.4 mg Discontinued Medications Hydrocodone Bitart/Acetaminophen ([place] 325-5 Mg) 1 tab PO Q4HR PRN PRN Reason: Pain Bupivacaine HCl (Marcaine 0.5%) Confirm Administered Dose 30 ml .ROUTE .STK-MED ONE Stop: 07/23/18 17:45 Last Admin: 07/23/18 19:52 Dose: 10 ml Cefazolin Sodium (Ancef) Confirm Administered Dose 2 gm .ROUTE .STK-MED ONE Stop: 07/23/18 18:17 Ephedrine Sulfate (Ephedrine In Ns) Confirm Administered Dose 25 mg .ROUTE .STK- MED ONE Stop: 07/23/18 19:12 Fentanyl (Sublimaze) Confirm Administered Dose 250 mcg .ROUTE .STK-MED ONE Stop: 07/23/18 17:40 Fentanyl (Sublimaze) Confirm Administered Dose 100 mcg .ROUTE .STK-MED ONE Stop: 07/23/18 20:10 Fentanyl (Sublimaze) 50 mcg IVPUSH Q5M PRN PRN Reason: Pain Hydromorphone HCl (Dilaudid) 0.5 mg IVPUSH Q2H PRN PRN Reason: Pain Hydromorphone HCl (Dilaudid) 0.5 mg IV Q2H PRN PRN Reason: pain Hydromorphone HCl (Dilaudid) 0.5 mg IVPUSH Q2H PRN PRN Reason: pain Last Admin: 07/24/18 04:52 Dose: 0.5 mg Sodium Chloride (Normal Saline) 1,000 mls @ 100 mls/hr IV ASDIRECTED [facility] Last Admin: 07/23/18 16:45 Dose: 100 mls/hr Lidocaine HCl (Xylocaine-Mpf 1%) Confirm Administered Dose 4 mls @ as directed .ROUTE .STK-MED ONE Stop: 07/23/18 17:40 Lactated Ringer's (Ringers, Lactated) Confirm Administered Dose 1,000 mls @ as directed .ROUTE .STK-MED ONE Stop: 07/23/18 19:05 Lactated Ringer's (Ringers, Lactated) 1,000 mls @ 100 mls/hr IV ASDIRECTED [facility] Last Admin: 07/24/18 05:11 Dose: 100 mls/hr Sodium Chloride (Normal Saline) 1,000 mls @ 100 mls/hr IV ASDIRECTED [facility] Sodium Chloride (Normal Saline) Confirm Administered Dose 1,000 mls @ as directed .ROUTE .STK-MED ONE Stop: 07/24/18 11:12 Last Admin: 07/24/18 12:24 Dose: Not Given Ketamine HCl (Ketalar) Confirm Administered Dose 500 mg .ROUTE .STK-MED ONE Stop: 07/23/18 18:07 Ketorolac Tromethamine (Toradol) Confirm Administered Dose 30 mg .ROUTE .STK- MED ONE Stop: 07/23/18 20:08 Lidocaine HCl (Xylocaine 1%) Confirm Administered Dose 50 ml .ROUTE .STK-MED ONE Stop: 07/23/18 17:45 Last Admin: 07/23/18 19:52 Dose: 10 ml Lidocaine HCl (Xylocaine 2% Jelly) Confirm Administered Dose 10 ml .ROUTE .STK- MED ONE Stop: 07/24/18 04:33 Last Admin: 07/24/18 10:37 Dose: Not Given Propofol (Diprivan 20 Ml) Confirm Administered Dose 200 mg .ROUTE .STK-MED ONE Stop: 07/23/18 17:40 Propofol (Diprivan 20 Ml) Confirm Administered Dose 200 mg .ROUTE .ST-MED ONE Stop: 07/23/18 18:29 Rocuronium [place] (Zemuron) Confirm Administered Dose 50 mg .ROUTE .[facility] ONE Stop: 07/23/18 19:05 - Exam GI/Abdominal Exam: Soft, Non-Tender, Distended (mildly destended) - Problem List Review Problem List Initiated/Reviewed/Updated: Yes - My Orders Last 24 Hours: Active Orders 24 hr Category Date Time Status Patient Status [ADT] Routine ADT 07/24/18 04:06 Active Bedrest [RC] ASDIRECTED Care 07/24/18 20:45 Active Incentive Spirometry [RT Incentive Spirometry] [RC] Care 07/24/18 17:53 Active Q1HWA NPO Now [Nothing per Oral Now Diet] [DIET] Diet 07/24/18 Lunch Active HEMOGLOBIN/HEMATOCRIT,HH [HEME] Routine Lab 07/25/18 05:00 Ordered HEMOGLOBIN/HEMATOCRIT,HH [HEME] Routine Lab 07/25/18 11:00 Ordered Enalapril [Vasotec] Med 07/24/18 09:00 Active 10 mg PO DAILY Morphine Med 07/24/18 12:09 Active 1 mg IVPUSH Q2H PRN Sodium Chloride 0.9% [Normal Saline] 1,000 ml Med 07/24/18 12:00 Active IV ASDIRECTED Tamsulosin [Flomax] Med 07/24/18 17:15 Active 0.4 mg PO DAILY Transfuse RBC [Transfuse Red Blood Cells] [COMM] Stat Oth 07/24/18 11:07 Ordered Medication Orders Enalapril Maleate (Vasotec) 10 mg PO DAILY [facility] Last Admin: 07/24/18 10:37 Dose: Not Given Sodium Chloride (Normal Saline) 1,000 mls @ 80 mls/hr IV ASDIRECTED [facility] Last Admin: 07/25/18 02:57 Dose: 80 mls/hr Infusion: 07/25/18 00:53 Dose: 80 mls/hr Admin: 07/24/18 12:23 Dose: 80 mls/hr Morphine Sulfate (Morphine) 1 mg IVPUSH Q2H PRN PRN Reason: Pain Last Admin: 07/24/18 19:16 Dose: 1 mg Admin: 07/24/18 12:23 Dose: 1 mg Ondansetron HCl (Zofran) 4 mg IVPUSH Q8H PRN PRN Reason: Nausea Tamsulosin HCl (Flomax) 0.4 mg PO DAILY [facility] Last Admin: 07/24/18 17:19 Dose: 0.4 mg - Plan Plan (Free Text/Narrative):: pt Hb is stable at 13, Urinating without use of catheter abdomen is softer surgical site is clean ass stable plan increase time up and begin diet YADY
[2018-07-25] MEDS: Tamsulosin 0.4 MG Cap.ER PO SCH (09:19)
[2018-07-25] MEDS ORDERED: Acetaminophen/HYDROcodone 325-5 MG Tab PO PRN (12:14)
--- NOTE | 2018-07-25 19:59 | PCM.SURGPN ---
- General Info Date of Service: 07/25/18 - Patient Data Vitals - Most Recent: Last Vital Signs Temp 99.0 F 07/25/18 15:36 Pulse 73 07/25/18 15:37 Resp 18 07/25/18 15:36 BP 111/63 07/25/18 15:37 Pulse Ox 98 07/25/18 15:37 Weight - Most Recent: 90.718 kg I&O - Last 24 Hours: Intake & Output 07/25/18 07/25/18 07/25/18 07:59 15:59 23:59 Intake Total 124 001 5449 Output Total 700 500 Balance 25 440 1068 Lab Results Last 24 Hrs: Laboratory Results - last 24 hr 07/24/18 07/25/18 07/25/18 Range/Units 22:59 05:50 11:00 Hgb 13.3 L 12.8 L 12.6 L (13.7-17.5) gm/L Hct 39.3 L 37.5 L 35.8 L (40.1-51.0) % 07/25/18 Range/Units 17:05 Hgb 12.5 L (13.7-17.5) gm/L Hct 36.4 L (40.1-51.0) % Med Orders - Current: Current Medications Hydrocodone Bitart/Acetaminophen ([place] 325-5 Mg) 1 tab PO Q6H PRN PRN Reason: Pain Last Admin: 07/25/18 13:04 Dose: 1 tab Enalapril Maleate (Vasotec) 10 mg PO DAILY [facility] Last Admin: 07/25/18 12:22 Dose: 10 mg Morphine Sulfate (Morphine) 1 mg IVPUSH Q2H PRN PRN Reason: Pain Last Admin: 07/24/18 19:16 Dose: 1 mg Ondansetron HCl (Zofran) 4 mg IVPUSH Q8H PRN PRN Reason: Nausea Tamsulosin HCl (Flomax) 0.4 mg PO DAILY [facility] Last Admin: 07/25/18 09:19 Dose: 0.4 mg Discontinued Medications Hydrocodone Bitart/Acetaminophen ([place] 325-5 Mg) 1 tab PO Q4HR PRN PRN Reason: Pain Bupivacaine HCl (Marcaine 0.5%) Confirm Administered Dose 30 ml .ROUTE .STK-MED ONE Stop: 07/23/18 17:45 Last Admin: 07/23/18 19:52 Dose: 10 ml Cefazolin Sodium (Ancef) Confirm Administered Dose [address] g[address] .[address]TE .[facility] ONE Stop: 07/23/18 18:17 Ephedrine Sulfate (Ephedrine In Ns) Confirm Administered Dose 25 mg .ROUTE .[facility] ONE Stop: 07/23/18 19:12 Fentanyl (Sublimaze) Confirm Administered Dose 250 mcg .[address]TE .[facility] ONE Stop: 07/23/18 17:40 Fentanyl (Sublimaze) Confirm Administered Dose 100 mcg .[address]TE .[facility] ONE Stop: 07/23/18 20:10 Fentanyl (Sublimaze) 50 mcg IVPUSH Q5M PRN PRN Reason: Pain Hydromorphone HCl (Dilaudid) 0.5 mg IVPUSH Q2H PRN PRN Reason: Pain Hydromorphone HCl (Dilaudid) 0.5 mg IV Q2H PRN PRN Reason: pain Hydromorphone HCl (Dilaudid) 0.5 mg IVPUSH Q2H PRN PRN Reason: pain Last Admin: 07/24/18 04:52 Dose: 0.5 mg Sodium Chloride (Normal Saline) 1,000 mls @ 100 mls/hr IV ASDIRECTED [facility] Last Admin: 07/23/18 16:45 Dose: 100 mls/hr Lidocaine HCl (Xylocaine-Mpf 1%) Confirm Administered Dose 4 mls @ as directed .ROUTE .[facility] ONE Stop: 07/23/18 17:40 Lactated Ringer's (Ringers, Lactated) Confirm Administered Dose 1,000 mls @ as directed .ROUTE .[facility] ONE Stop: 07/23/18 19:05 Lactated Ringer's (Ringers, Lactated) 1,000 mls @ 100 mls/hr IV ASDIRECTED [facility] Last Admin: 07/24/18 05:11 Dose: 100 mls/hr Sodium Chloride (Normal Saline) 1,000 mls @ 100 mls/hr IV ASDIRECTED [facility] Sodium Chloride (Normal Saline) Confirm Administered Dose 1,000 mls @ as directed .ROUTE .[facility] ONE Stop: 07/24/18 11:12 Last Admin: 07/24/18 12:24 Dose: Not Given Sodium Chloride (Normal Saline) 1,000 mls @ 80 mls/hr IV ASDIRECTED [facility] Last Admin: 07/25/18 02:57 Dose: 80 mls/hr Ketamine HCl (Ketalar) Confirm Administered Dose 500 mg .ROUTE .STK-MED ONE Stop: 07/23/18 18:07 Ketorolac Tromethamine (Toradol) Confirm Administered Dose 30 mg .ROUTE .STK- MED ONE Stop: 07/23/18 20:08 Lidocaine HCl (Xylocaine 1%) Confirm Administered Dose 50 ml .ROUTE .STK-MED ONE Stop: 07/23/18 17:45 Last Admin: 07/23/18 19:52 Dose: 10 ml Lidocaine HCl (Xylocaine 2% Jelly) Confirm Administered Dose 10 ml .ROUTE .STK- MED ONE Stop: 07/24/18 04:33 Last Admin: 07/24/18 10:37 Dose: Not Given Propofol (Diprivan 20 Ml) Confirm Administered Dose 200 mg .ROUTE .STK-MED ONE Stop: 07/23/18 17:40 Propofol (Diprivan 20 Ml) Confirm Administered Dose 200 mg .ROUTE .STK-MED ONE Stop: 07/23/18 18:29 Rocuronium [place] (Zemuron) Confirm Administered Dose 50 mg .ROUTE .STK-MED ONE Stop: 07/23/18 19:05 - Problem List Review Problem List Initiated/Reviewed/Updated: Yes - My Orders Last 24 Hours: Active Orders 24 hr Category Date Time Status Dangle at Bedside [RC] ASDIRECTED Care 07/25/18 07:01 Active Up With Assistance [] ASDIRECTED Care 07/25/18 07:01 Active Clear Liquid Diet [DIET] Diet 07/25/18 Breakfast Active Acetaminophen/HYDROcodone [[place] 325-5 MG] Med 07/25/18 12:14 Active 1 tab PO Q6H PRN Convert IV to Saline Lock [OM.PC] Routine Oth 07/25/18 17:08 Ordered Medication Orders Hydrocodone Bitart/Acetaminophen ([place] 325-5 Mg) 1 tab PO Q6H PRN PRN Reason: Pain Last Admin: 07/25/18 13:04 Dose: 1 tab Enalapril Maleate (Vasotec) 10 mg PO DAILY [facility] Last Admin: 07/25/18 12:22 Dose: 10 mg Admin: 07/24/18 10:37 Dose: Not Given Morphine Sulfate (Morphine) 1 mg IVPUSH Q2H PRN PRN Reason: Pain Last Admin: 07/24/18 19:16 Dose: 1 mg Admin: 07/24/18 12:23 Dose: 1 mg Ondansetron HCl (Zofran) 4 mg IVPUSH Q8H PRN PRN Reason: Nausea Tamsulosin HCl (Flomax) 0.4 mg PO DAILY [facility] Last Admin: 07/25/18 09:19 Dose: 0.4 mg Admin: 07/24/18 17:19 Dose: 0.4 mg - Plan Plan (Free Text/Narrative):: patient is stable YADY
[2018-07-26] MEDS: Tamsulosin 0.4 MG Cap.ER PO SCH (08:58)
--- NOTE | 2018-07-26 09:21 | PCM.SURGPN ---
- General Info Date of Service: 07/26/18 POD#: 3 Functional Status: Reports: Pain Controlled - Review of Systems Pulmonary: Reports: No Symptoms Cardiovascular: Reports: No Symptoms Gastrointestinal: Reports: No Symptoms - Patient Data Vitals - Most Recent: Last Vital Signs Temp 97.5 F 07/26/18 08:57 Pulse 75 07/26/18 08:57 Resp 18 07/26/18 08:57 BP 143/89 H 07/26/18 08:58 Pulse Ox 97 07/26/18 08:57 Weight - Most Recent: 86.046 kg I&O - Last 24 Hours: Intake & Output 07/25/18 07/26/18 07/26/18 23:59 07:59 15:59 Intake Total 1568 800 Output Total 500 750 Balance 1068 50 Lab Results Last 24 Hrs: Laboratory Results - last 24 hr 07/25/18 07/25/18 07/26/18 Range/Units 11:00 17:05 06:08 WBC 7.20 (4.23-9.07) K/mm3 RBC 4.07 L (4.63-6.08) M/mm3 Hgb 12.6 L 12.5 L 12.4 L (13.7-17.5) gm/L Hct 35.8 L 36.4 L 36.3 L (40.1-51.0) % MCV 89.2 (79.0-92.2) fl MCH 30.5 (25.7-32.2) pg MCHC 34.2 (32.2-35.5) g/dl RDW Std Deviation 41.9 (35.1-43.9) fL Plt Count 147 L (163-337) K/mm3 MPV 9.3 L (9.4-12.3) fl Neut % (Auto) 71.7 H (34.0-67.9) % Lymph % (Auto) 16.1 L (21.8-53.1) % [place] % (Auto) 9.4 (5.3-12.2) % Eos % (Auto) 2.6 (0.8-7.0) Baso % (Auto) 0.1 (0.1-1.2) % Neut # (Auto) 5.15 (1.78-5.38) K/mm3 Lymph # (Auto) 1.16 L (1.32-3.57) K/mm3 [place] # (Auto) 0.68 (0.30-0.82) K/mm3 Eos # (Auto) 0.19 (0.04-0.54) K/mm3 Baso # (Auto) 0.01 (0.01-0.08) K/mm3 Med Orders - Current: Current Medications Hydrocodone Bitart/Acetaminophen ([place] 325-5 Mg) 1 tab PO Q6H PRN PRN Reason: Pain Last Admin: 07/25/18 13:04 Dose: 1 tab Enalapril Maleate (Vasotec) 10 mg PO DAILY [facility] Last Admin: 07/26/18 08:58 Dose: 10 mg Morphine Sulfate (Morphine) 1 mg IVPUSH Q2H PRN PRN Reason: Pain Last Admin: 07/24/18 19:16 Dose: 1 mg Ondansetron HCl (Zofran) 4 mg IVPUSH Q8H PRN PRN Reason: Nausea Tamsulosin HCl (Flomax) 0.4 mg PO DAILY [facility] Last Admin: 07/26/18 08:58 Dose: 0.4 mg Discontinued Medications Hydrocodone Bitart/Acetaminophen ([place] 325-5 Mg) 1 tab PO Q4HR PRN PRN Reason: Pain Bupivacaine HCl (Marcaine 0.5%) Confirm Administered Dose 30 ml .ROUTE .STK-MED ONE Stop: 07/23/18 17:45 Last Admin: 07/23/18 19:52 Dose: 10 ml Cefazolin Sodium (Ancef) Confirm Administered Dose 2 gm .ROUTE .STK-MED ONE Stop: 07/23/18 18:17 Ephedrine Sulfate (Ephedrine In Ns) Confirm Administered Dose 25 mg .ROUTE .STK- MED ONE Stop: 07/23/18 19:12 Fentanyl (Sublimaze) Confirm Administered Dose 250 mcg .ROUTE .STK-MED ONE Stop: 07/23/18 17:40 Fentanyl (Sublimaze) Confirm Administered Dose 100 mcg .ROUTE .STK-MED ONE Stop: 07/23/18 20:10 Fentanyl (Sublimaze) 50 mcg IVPUSH Q5M PRN PRN Reason: Pain Hydromorphone HCl (Dilaudid) 0.5 mg IVPUSH Q2H PRN PRN Reason: Pain Hydromorphone HCl (Dilaudid) 0.5 mg IV Q2H PRN PRN Reason: pain Hydromorphone HCl (Dilaudid) 0.5 mg IVPUSH Q2H PRN PRN Reason: pain Last Admin: 07/24/18 04:52 Dose: 0.5 mg Sodium Chloride (Normal Saline) 1,000 mls @ 100 mls/hr IV ASDIRECTED ON LICENSE OF [facility] Last Admin: 07/23/18 16:45 Dose: 100 mls/hr Lidocaine HCl (Xylocaine-Mpf 1%) Confirm Administered Dose 4 mls @ as directed .ROUTE .[facility] ONE Stop: 07/23/18 17:40 Lactated Ringer's (Ringers, Lactated) Confirm Administered Dose 1,000 mls @ as directed .ROUTE .[facility] ONE Stop: 07/23/18 19:05 Lactated Ringer's (Ringers, Lactated) 1,000 mls @ 100 mls/hr IV ASDIRECTED ON LICENSE OF [facility] Last Admin: 07/24/18 05:11 Dose: 100 mls/hr Sodium Chloride (Normal Saline) 1,000 mls @ 100 mls/hr IV ASDIRECTED ON LICENSE OF [facility] Sodium Chloride (Normal Saline) Confirm Administered Dose 1,000 mls @ as directed .ROUTE .[facility] ONE Stop: 07/24/18 11:12 Last Admin: 07/24/18 12:24 Dose: Not Given Sodium Chloride (Normal Saline) 1,000 mls @ 80 mls/hr IV ASDIRECTED ON [facility] OF [facility] Last Admin: 07/25/18 02:57 Dose: 80 mls/hr Ketamine HCl (Ketalar) Confirm Administered Dose 500 mg .ROUTE .[facility] ONE Stop: 07/23/18 18:07 Ketorolac Tromethamine (Toradol) Confirm Administered Dose 30 mg .ROUTE .[facility] ONE Stop: 07/23/18 20:08 Lidocaine HCl (Xylocaine 1%) Confirm Administered Dose 50 ml .ROUTE .[facility] ONE Stop: 07/23/18 17:45 Last Admin: 07/23/18 19:52 Dose: 10 ml Lidocaine HCl (Xylocaine 2% Jelly) Confirm Administered Dose 10 ml .ROUTE .[facility] ONE Stop: 07/24/18 04:33 Last Admin: 07/24/18 10:37 Dose: Not Given Propofol (Diprivan 20 Ml) Confirm Administered Dose 200 mg .ROUTE .STK-MED ONE Stop: 07/23/18 17:40 Propofol (Diprivan 20 Ml) Confirm Administered Dose 200 mg .ROUTE .STK-MED ONE Stop: 07/23/18 18:29 Rocuronium [place] (Zemuron) Confirm Administered Dose 50 mg .ROUTE .STK-MED ONE Stop: 07/23/18 19:05 - Exam Wound/Incisions: Healing Well Cardiovascular: Regular Rate, Regular Rhythm GI/Abdominal Exam: Normal Bowel Sounds, Soft, Other (having tary stools) - Problem List Review Problem List Initiated/Reviewed/Updated: Yes - My Orders Last 24 Hours: Active Orders 24 hr Category Date Time Status Acetaminophen/HYDROcodone [[place] 325-5 MG] Med 07/25/18 12:14 Active 1 tab PO Q6H PRN Convert IV to Saline Lock [OM.PC] Routine Oth 07/25/18 17:08 Ordered Medication Orders Hydrocodone Bitart/Acetaminophen ([place] 325-5 Mg) 1 tab PO Q6H PRN PRN Reason: Pain Last Admin: 07/25/18 13:04 Dose: 1 tab Enalapril Maleate (Vasotec) 10 mg PO DAILY [facility] Last Admin: 07/26/18 08:58 Dose: 10 mg Admin: 07/25/18 12:22 Dose: 10 mg Admin: 07/24/18 10:37 Dose: Not Given Morphine Sulfate (Morphine) 1 mg IVPUSH Q2H PRN PRN Reason: Pain Last Admin: 07/24/18 19:16 Dose: 1 mg Admin: 07/24/18 12:23 Dose: 1 mg Ondansetron HCl (Zofran) 4 mg IVPUSH Q8H PRN PRN Reason: Nausea Tamsulosin HCl (Flomax) 0.4 mg PO DAILY ON [facility] Last Admin: 07/26/18 08:58 Dose: 0.4 mg Admin: 07/25/18 09:19 Dose: 0.4 mg Admin: 07/24/18 17:19 Dose: 0.4 mg - Plan Plan (Free Text/Narrative):: stable Hb ass doing well plan advance diet
[2018-07-27] MEDS: Tamsulosin 0.4 MG Cap.ER PO SCH (08:00)
[2018-07-27] MEDS ORDERED: Metoprolol Tartrate 25 MG Tab PO ONE (10:04)
[2018-07-27] MEDS ORDERED: Magnesium Sulfate/Water 2 GM in Premix Bag 1 BAG IV ONE (10:15)
--- NOTE | 2018-07-27 10:39 | PCM.CONS ---
H&P History of Present Illness - General Date of Service: 07/27/18 Admit Problem/Dx: Admission Diagnosis/Problem Admission Diagnosis/Problem Incarcerated right inguinal hernia Source of Information: Patient, Family, Old Records, Provider, RN Notes Reviewed History Limitations: Reports: No Limitations - History of Present Illness Initial Comments - Free Text/Narative: This is a 78 yo elderly white male with past medical hx/o HTN, BPH, Colonic Polyp, OA and Anxiety who recently underwent right inguinal hernia repair status post small bowel resection post operative day # 4 who suddenly developed new onset of atrial fibrillation with heart rates in the low hundreds. He has no past hx/o it and carries no CAD or HF. He denies any thyroid issues. His most recent EKG taken this morning shows atrial fibrillation with a heart of 109. His potassium is 3.3 and Mg is 1.6. Patient is completely asymptomatic. The hospitalist team is being consulted for further evaluation and management of his irregular heart rate. Lower Abdominal Pain Score (Numeric/FACES): 6 - Related Data Allergies/Adverse Reactions: Allergies Allergy/AdvReac Type Severity Reaction Status Date / Time No Known Allergies Allergy Verified 07/23/18 15:15 Home Medications: Home Meds Aspirin [Halfprin] 81 mg PO DAILY 09/27/14 [History] Enalapril [Vasotec] 10 mg PO DAILY 09/27/14 [History] Acetaminophen [Tylenol] 650 mg PO Q4H PRN tablet 07/28/18 [Rx] Acetaminophen/HYDROcodone [[place] 325-5 MG] 1 tab PO Q6H PRN #20 tablet 07/28/18 [Rx] Metoprolol Tartrate [Lopressor] 25 mg PO Q12H #60 tablet 07/28/18 [Rx] Tamsulosin [Flomax] 0.4 mg PO DAILY #30 cap.er 07/28/18 [Rx] Past Medical History - Past Health History Medical/Surgical History: Denies Medical/Surgical History HEENT History: Reports: Hard of Hearing, Impaired Vision Cardiovascular History: Reports: Hypertension Respiratory History: Reports: None Gastrointestinal History: Reports: Colon Polyp, Diverticulosis, GERD Genitourinary History: Reports: BPH Musculoskeletal History: Reports: Osteoarthritis Neurological History: Reports: Headaches, Chronic, Vertigo, Other (See Below) Other Neuro History: long time ago Psychiatric History: Reports: Anxiety Endocrine/Metabolic History: Reports: None - Infectious Disease History Infectious Disease History: Reports: Mumps - Past Surgical History HEENT Surgical History: Reports: Detached Retina Other HEENT Surgeries/Procedures: bilateral hearing, glasses Cardiovascular Surgical History: Reports: None GI Surgical History: Reports: Hernia, Inguinal Other GI Surgeries/Procedures: bowel resection r/t incarcerated inguinal hernia is current dx Male Surgical History: Reports: TURP-Transurethral Resection of Prostate Endocrine Surgical History: Reports: None Musculoskeletal Surgical History: Reports: None Social & Family History - Family History Family Medical History: Noncontributory - Tobacco Use Smoking Status *Q: Never Smoker Second Hand Smoke Exposure: No - Caffeine Use Caffeine Use: Reports: Coffee - Alcohol Use Days Per Week of Alcohol Use: 0 Number of Drinks Per Day: 0 Total Drinks Per Week: 0 - Recreational Drug Use Recreational Drug Use: No - Living Situation & Occupation Living situation: Reports: , with Spouse Occupation: Retired H&P Review of Systems - Review of Systems: Review Of Systems: See Below General: Denies: Fever, Chills, Malaise, Weakness, Fatigue HEENT: Reports: No Symptoms Pulmonary: Denies: Shortness of Breath Cardiovascular: Denies: Chest Pain, Palpitations, Dyspnea on Exertion, Edema, Lightheadedness, Syncope, Blood Pressure Problem Gastrointestinal: Reports: Abdominal Pain (4/10), Flatus. Denies: Anorexia, Black Stool, Bloody Stool, Constipation, Diarrhea, Decreased Appetite, Difficulty Swallowing, Distension, Hematemesis, Hematochezia, Melena, Nausea, Vomiting Genitourinary: Reports: No Symptoms Musculoskeletal: Reports: No Symptoms Skin: Reports: No Symptoms Psychiatric: Reports: Anxiety. Denies: Depression, Agitation Neurological: Denies: Confusion, Difficulty Walking, Weakness, Gait Disturbance Hematologic/Lymphatic: Reports: No Symptoms Immunologic: Reports: No Symptoms Exam - Exam Exam: See Below - Vital Signs Vital Signs: Last Vital Signs Temp 36.9 C 07/27/18 07:50 Pulse 93 07/27/18 07:50 Resp 16 07/27/18 07:50 BP 141/79 H 07/27/18 08:00 Pulse Ox 96 07/27/18 07:50 Weight: 82.962 kg - Exam General: Alert, Oriented, Cooperative, Mild Distress HEENT: Conjunctiva Clear, EACs Clear, EOMI, Hearing Intact, Mucosa Moist & [employer] , Nares Patent, Normal Nasal Septum, Posterior Pharynx Clear, Pupils Equal, Pupils Reactive Neck: Supple, Trachea Midline, Full Range of Motion. No: Lymphadenopathy, Thyromegaly Lungs: Clear to Auscultation, Normal Respiratory Effort Cardiovascular: Irregular Rhythm, Other (Irregular) GI/Abdominal Exam: Normal Bowel Sounds, Soft, No Distention, No Abnormal Bruit, No Mass, Tender (on mild palpation), Other (surgical dressing noted on his abdomen) (Male) Exam: Deferred Rectal (Males) Exam: Deferred Back Exam: Normal Inspection, Decreased Range of Motion Extremities: Normal Inspection, Normal Range of Motion, Non-Tender, No Pedal Edema, Normal Capillary Refill Peripheral Pulses: 2+: Posterior Tibial (L), Posterior Tibial (R), Dorsalis Pedis (L), Dorsalis Pedis (R) Skin: Warm, Dry, Intact Neuro Extensive - Mental Status: Oriented x3, Normal Cognition, Memory Intact Neuro Extensive - Motor, Sensory, Reflexes: CN II-XII Intact (limited due to current status but grossly intact), Normal Gait Psychiatric: Alert, Normal Affect, Normal Mood. No: Anxious - Patient Data Lab Results Last 24 hrs: Laboratory Results - last 24 hr 07/27/18 07/27/18 Range/Units 07:37 07:37 WBC 6.40 (4.23-9.07) K/mm3 RBC 4.32 L (4.63-6.08) M/mm3 Hgb 13.1 L (13.7-17.5) gm/L Hct 38.0 L (40.1-51.0) % MCV 88.0 (79.0-92.2) fl MCH 30.3 (25.7-32.2) pg MCHC 34.5 (32.2-35.5) g/dl RDW Std Deviation 40.6 (35.1-43.9) fL Plt Count 172 (163-337) K/mm3 MPV 9.1 L (9.4-12.3) fl Neut % (Auto) 68.0 H (34.0-67.9) % Lymph % (Auto) 18.3 L (21.8-53.1) % [place] % (Auto) 9.4 (5.3-12.2) % Eos % (Auto) 3.8 (0.8-7.0) Baso % (Auto) 0.3 (0.1-1.2) % Neut # (Auto) 4.36 (1.78-5.38) K/mm3 Lymph # (Auto) 1.17 L (1.32-3.57) K/mm3 [place] # (Auto) 0.60 (0.30-0.82) K/mm3 Eos # (Auto) 0.24 (0.04-0.54) K/mm3 Baso # (Auto) 0.02 (0.01-0.08) K/mm3 Sodium 141 (136-145) mEq/L Potassium 3.3 L (3.5-5.1) mEq/L Chloride 106 (98-107) mEq/L Carbon Dioxide 24 (21-32) mEq/L Anion Gap 14.3 (5-15) BUN 22 H (7-18) mg/dL Creatinine 0.9 (0.7-1.3) mg/dL Est Cr Clr Drug Dosing 75.44 mL/min Estimated GFR (MDRD) > 60 (>60) mL/min BUN/Creatinine Ratio 24.4 H (14-18) Glucose 105 (83-115) mg/dL Calcium 8.4 L (8.5-10.1) mg/dL Magnesium 1.5 L (1.8-2.4) mg/dl Result Diagrams: 07/27/18 07:37 07/28/18 05:34 Imaging Impressions Last 24 hrs: EKGs: 07/27/2018 at 08:30 shows atrial fibrillation with a heart rate of 109 07/27/2018 at 09:35 shows atrial fibrillation with a heart rate of 106 Consult PN Assessment/Plan POD#: 4 Procedures: Procedures ASSAY OF TROPONIN QUANT (09/27/14) C-REACTIVE PROTEIN (09/27/14) CHEST X-RAY 2VW FRONTAL&LATL (09/27/14) COMPLETE CBC W/AUTO DIFF WBC (09/27/14) COMPREHEN METABOLIC PANEL (09/27/14) ELECTROCARDIOGRAM TRACING (09/27/14) EMERGENCY DEPT VISIT (09/27/14) ROUTINE VENIPUNCTURE (09/27/14) THER/PROPH/DIAG INJ IV PUSH (09/27/14) Problem List Initiated/Reviewed/Updated: Yes My Orders Last 24 Hours: My Active Orders 07/27/18 09:26 EKG Documentation Completion [RC] ASDIRECTED EKG 12 Lead [EK] Routine 07/27/18 10:15 Magnesium Sulfate/Water [Magnesium Sulfate 2 GM in Water 50 ML] 2 gm Premix Bag 1 bag IV ONETIME Pharmacy to Dose - Magnesium R [Pharmacy to Dose - Magnesium Replacement] 0 dose .XX ASDIRECTED PRN Pharmacy to Dose - Potassium R [Pharmacy to Dose - Potassium Replacement] 0 dose .XX ASDIRECTED PRN Potassium Chloride [Klor-Con M20] 40 meq PO BID 07/27/18 10:45 Enoxaparin [Lovenox] 30 mg SUBCUT Q24H 07/27/18 21:00 Metoprolol Tartrate [Lopressor] 25 mg PO Q12H 07/28/18 05:11 T4 FREE [CHEM] AM TSH [CHEM] AM 07/28/18 07:00 Echo Comp wo Cont [US] Routine Plan: Assessment/Plan: This is a 78 yo elderly white male who recently underwent right inguinal hernia repair with small bowel resection post operative day #4 and developed sudden onset of irregular heart rate both on telemetry and serial electrocardiogram. His heart rate appears to be in atrial fibrillation with heart rates in the low hundreds. He has been asymptomatic since onset of abnormal heart rate and rhythm. We reviewed his diagnostic data and past medical history, although he carries a hx/o anxiety we felt this new onset of atrial fibrillation is due to stress from his recent abdominal surgery and further aggravated by his low levels of electrolytes. He carries a [id number] score of 3 (Age, HTN and Male) which puts him at a moderate-high risk w/o anticoagulation. From the hospitalist standpoint, we recommend the following: replete electrolytes, thyroid panel, make sure his pain is adequately controlled, 2D echocardiogram in AM, Lovenox 30 mg SubQ daily for DVT/Stroke prophylaxis and Metoprolol 25 mg po BID for rate control agent. If he is able to convert back to sinus rhythm (right away), we do not expect him to go home with any of the above medications. On behalf of the hospitalist team, thank you Dr. Nicole for the opportunity to participate in the management of this patient. We will continue to follow him along with you. Requesting Provider: Dr. Bonnie Date Consult Requested: 07/27/18 Reason for Consult: Irregular Heart Rate Patient History Reviewed: Yes Admission H&P Reviewed: Yes Consult Result/Summary:: Atrial Fibrillation S/p Bowel Surgery Notified Requestor: Yes Time Spent (in minutes): 45
[2018-07-27] MEDS: Potassium Chloride 20 MEQ Tab.ER PO SCH ×2 (11:06→20:53)
[2018-07-27] MEDS: Enoxaparin 30 MG/0.3 ML Syringe SUBCUT SCH (11:10)
[2018-07-27] MEDS: Acetaminophen 325 MG Tab PO PRN ×3 (11:46→23:55)
[2018-07-27] MEDS: Metoprolol Tartrate 25 MG Tab PO SCH (20:54)
[2018-07-28] MEDS: Acetaminophen 325 MG Tab PO PRN (07:45)
--- NOTE | 2018-07-28 08:58 | PCM.SURGPN ---
- General Info Date of Service: 07/28/18 - Patient Data Vitals - Most Recent: Last Vital Signs Temp 97.5 F 07/28/18 03:40 Pulse 62 07/28/18 03:40 Resp 18 07/28/18 03:40 BP 100/59 L 07/28/18 03:40 Pulse Ox 97 07/28/18 03:40 Weight - Most Recent: 83.506 kg I&O - Last 24 Hours: Intake & Output 07/27/18 07/28/18 07/28/18 23:59 07:59 15:59 Intake Total 300 500 Output Total 400 Balance 300 100 Lab Results Last 24 Hrs: Laboratory Results - last 24 hr 07/27/18 07/28/18 Range/Units 07:37 05:34 Sodium 141 143 (136-145) mEq/L Potassium 3.3 L 4.0 (3.5-5.1) mEq/L Chloride 106 108 H (98-107) mEq/L Carbon Dioxide 24 26 (21-32) mEq/L Anion Gap 14.3 13.0 (5-15) BUN 22 H 24 H (7-18) mg/dL Creatinine 0.9 0.8 (0.7-1.3) mg/dL Est Cr Clr Drug Dosing 75.44 84.88 mL/min Estimated GFR (MDRD) > 60 > 60 (>60) mL/min BUN/Creatinine Ratio 24.4 H 30.0 H (14-18) Glucose 105 104 (83-115) mg/dL Calcium 8.4 L 8.0 L (8.5-10.1) mg/dL Magnesium 1.5 L 1.9 (1.8-2.4) mg/dl Free T4 1.17 (0.76-1.46) ng/dL TSH 3rd Generation 1.581 (0.358-3.74) uIU/mL Med Orders - Current: Current Medications Acetaminophen (Tylenol) 650 mg PO Q4H PRN PRN Reason: Pain (mild 1-3) Last Admin: 07/28/18 07:45 Dose: 650 mg Hydrocodone Bitart/Acetaminophen (Alto 325-5 Mg) 1 tab PO Q6H PRN PRN Reason: Pain Last Admin: 07/25/18 13:04 Dose: 1 tab Enalapril Maleate (Vasotec) 10 mg PO DAILY [place] Last Admin: 07/27/18 08:00 Dose: 10 mg Enoxaparin Sodium (Lovenox) 30 mg SUBCUT Q24H [facility] Last Admin: 07/27/18 11:10 Dose: 30 mg Magnesium Sulfate (Pharmacy To Dose - Magnesium Replacement) 0 dose .XX ASDIRECTED PRN PRN Reason: RX TO WATCH MAG Metoprolol Tartrate (Lopressor) 25 mg PO Q12H [facility] Last Admin: 07/27/18 20:54 Dose: 25 mg Morphine Sulfate (Morphine) 1 mg IVPUSH Q2H PRN PRN Reason: Pain Last Admin: 07/24/18 19:16 Dose: 1 mg Ondansetron HCl (Zofran) 4 mg IVPUSH Q8H PRN PRN Reason: Nausea Potassium Chloride (Pharmacy To Dose - Potassium Replacement) 0 dose .XX ASDIRECTED PRN PRN Reason: RX TO WATCH K Tamsulosin HCl (Flomax) 0.4 mg PO DAILY [facility] Last Admin: 07/27/18 08:00 Dose: 0.4 mg Discontinued Medications Hydrocodone Bitart/Acetaminophen (Alto 325-5 Mg) 1 tab PO Q4HR PRN PRN Reason: Pain Bupivacaine HCl (Marcaine 0.5%) Confirm Administered Dose 30 ml .ROUTE .STK-MED ONE Stop: 07/23/18 17:45 Last Admin: 07/23/18 19:52 Dose: 10 ml Cefazolin Sodium (Ancef) Confirm Administered Dose 2 gm .ROUTE .STK-MED ONE Stop: 07/23/18 18:17 Ephedrine Sulfate (Ephedrine In Ns) Confirm Administered Dose 25 mg .ROUTE .STK- MED ONE Stop: 07/23/18 19:12 Fentanyl (Sublimaze) Confirm Administered Dose 250 mcg .ROUTE .STK-MED ONE Stop: 07/23/18 17:40 Fentanyl (Sublimaze) Confirm Administered Dose 100 mcg .ROUTE .STK-MED ONE Stop: 07/23/18 20:10 Fentanyl (Sublimaze) 50 mcg IVPUSH Q5M PRN PRN Reason: Pain Hydromorphone HCl (Dilaudid) 0.5 mg IVPUSH Q2H PRN PRN Reason: Pain Hydromorphone HCl (Dilaudid) 0.5 mg IV Q2H PRN PRN Reason: pain Hydromorphone HCl (Dilaudid) 0.5 mg IVPUSH Q2H PRN PRN Reason: pain Last Admin: 07/24/18 04:52 Dose: 0.5 mg Sodium Chloride (Normal Saline) 1,000 mls @ 100 mls/hr IV ASDIRECTED [facility] Last Admin: 07/23/18 16:45 Dose: 100 mls/hr Lidocaine HCl (Xylocaine-Mpf 1%) Confirm Administered Dose 4 mls @ as directed .ROUTE .STK-MED ONE Stop: 07/23/18 17:40 Lactated Ringer's (Ringers, Lactated) Confirm Administered Dose 1,000 mls @ as directed .ROUTE .STK-MED ONE Stop: 07/23/18 19:05 Lactated Ringer's (Ringers, Lactated) 1,000 mls @ 100 mls/hr IV ASDIRECTED [facility] Last Admin: 07/24/18 05:11 Dose: 100 mls/hr Sodium Chloride (Normal Saline) 1,000 mls @ 100 mls/hr IV ASDIRECTED [facility] Sodium Chloride (Normal Saline) Confirm Administered Dose 1,000 mls @ as directed .ROUTE .STK-MED ONE Stop: 07/24/18 11:12 Last Admin: 07/24/18 12:24 Dose: Not Given Sodium Chloride (Normal Saline) 1,000 mls @ 80 mls/hr IV ASDIRECTED [facility] Last Admin: 07/25/18 02:57 Dose: 80 mls/hr Magnesium Sulfate 2 gm/ Premix 50 mls @ 25 mls/hr IV ONETIME ONE Stop: 07/27/18 12:14 Last Admin: 07/27/18 11:06 Dose: 25 mls/hr Ketamine HCl (Ketalar) Confirm Administered Dose 500 mg .ROUTE .STK-MED ONE Stop: 07/23/18 18:07 Ketorolac Tromethamine (Toradol) Confirm Administered Dose 30 mg .ROUTE .STK- MED ONE Stop: 07/23/18 20:08 Lidocaine HCl (Xylocaine 1%) Confirm Administered Dose 50 ml .ROUTE .STK-MED ONE Stop: 07/23/18 17:45 Last Admin: 07/23/18 19:52 Dose: 10 ml Lidocaine HCl (Xylocaine 2% Jelly) Confirm Administered Dose 10 ml .ROUTE .STK- MED ONE Stop: 07/24/18 04:33 Last Admin: 07/24/18 10:37 Dose: Not Given Metoprolol Tartrate (Lopressor) 25 mg PO ONETIME ONE Stop: 07/27/18 10:05 Last Admin: 07/27/18 11:07 Dose: 25 mg Potassium Chloride (Klor-Con M20) 40 meq PO BID [place] Stop: 07/27/18 21:01 Last Admin: 07/27/18 20:53 Dose: 40 meq Propofol (Diprivan 20 Ml) Confirm Administered Dose 200 mg .ROUTE .STK-MED ONE Stop: 07/23/18 17:40 Propofol (Diprivan 20 Ml) Confirm Administered Dose 200 mg .ROUTE .STK-MED ONE Stop: 07/23/18 18:29 Rocuronium [place] (Zemuron) Confirm Administered Dose 50 mg .ROUTE .STK-MED ONE Stop: 07/23/18 19:05 - Problem List Review Problem List Initiated/Reviewed/Updated: Yes - My Orders Last 24 Hours: Active Orders 24 hr Category Date Time Status EKG 12 Lead [EKG Documentation Completion] [RC] AM Care 07/28/18 07:00 Active Notify Provider Consults [RC] ASDIRECTED Care 07/27/18 08:20 Active Consult to Physician [CONS] Routine Cons 07/27/18 08:19 Active Acetaminophen [Tylenol] Med 07/27/18 11:34 Active 650 mg PO Q4H PRN Enoxaparin [Lovenox] Med 07/27/18 11:00 Active 30 mg SUBCUT Q24H Metoprolol Tartrate [Lopressor] Med 07/27/18 21:00 Active 25 mg PO Q12H Pharmacy to Dose - Magnesium R [Pharmacy to Dose - Med 07/27/18 10:15 Active Magnesium Replacement] 0 dose .XX ASDIRECTED PRN Pharmacy to Dose - Potassium R [Pharmacy to Dose - Med 07/27/18 10:15 Active Potassium Replacement] 0 dose .XX ASDIRECTED PRN EKG 12 Lead [EK] Routine Ther 07/27/18 09:26 Ordered EKG 12 Lead [EK] Routine Ther 07/27/18 12:54 Ordered Medication Orders Acetaminophen (Tylenol) 650 mg PO Q4H PRN PRN Reason: Pain (mild 1-3) Last Admin: 07/28/18 07:45 Dose: 650 mg Admin: 07/27/18 23:55 Dose: 650 mg Admin: 07/27/18 17:43 Dose: 650 mg Admin: 07/27/18 11:46 Dose: 650 mg Hydrocodone Bitart/Acetaminophen (Alto 325-5 Mg) 1 tab PO Q6H PRN PRN Reason: Pain Last Admin: 07/25/18 13:04 Dose: 1 tab Enalapril Maleate (Vasotec) 10 mg PO DAILY [facility] Last Admin: 07/27/18 08:00 Dose: 10 mg Admin: 07/26/18 08:58 Dose: 10 mg Admin: 07/25/18 12:22 Dose: 10 mg Admin: 07/24/18 10:37 Dose: Not Given Enoxaparin Sodium (Lovenox) 30 mg SUBCUT Q24H [facility] Last Admin: 07/27/18 11:10 Dose: 30 mg Magnesium Sulfate (Pharmacy To Dose - Magnesium Replacement) 0 dose .XX ASDIRECTED PRN PRN Reason: RX TO WATCH MAG Metoprolol Tartrate (Lopressor) 25 mg PO Q12H [facility] Last Admin: 07/27/18 20:54 Dose: 25 mg Morphine Sulfate (Morphine) 1 mg IVPUSH Q2H PRN PRN Reason: Pain Last Admin: 07/24/18 19:16 Dose: 1 mg Admin: 07/24/18 12:23 Dose: 1 mg Ondansetron HCl (Zofran) 4 mg IVPUSH Q8H PRN PRN Reason: Nausea Potassium Chloride (Pharmacy To Dose - Potassium Replacement) 0 dose .XX ASDIRECTED PRN PRN Reason: RX TO WATCH K Tamsulosin HCl (Flomax) 0.4 mg PO DAILY [facility] Last Admin: 07/27/18 08:00 Dose: 0.4 mg Admin: 07/26/18 08:58 Dose: 0.4 mg Admin: 07/25/18 09:19 Dose: 0.4 mg Admin: 07/24/18 17:19 Dose: 0.4 mg - Plan Plan (Free Text/Narrative):: discharge note dictated [id number]
[2018-07-28 09:30] VITALS: BP 111/86
[2018-07-28] MEDS: Metoprolol Tartrate 25 MG Tab PO SCH (09:41)
[2018-07-28] MEDS: Tamsulosin 0.4 MG Cap.ER PO SCH (09:42)
--- NOTE | 2018-07-28 09:52 | PCM.CONSN ---
- General Info Date of Service: 07/28/18 Admission Dx/Problem (Free Text): Admission Diagnosis/Problem Admission Diagnosis/Problem Incarcerated right inguinal hernia Subjective Update: Follow Up Functional Status: Reports: Pain Controlled, Tolerating Diet, Ambulating, Urinating. Denies: New Symptoms - Review of Systems General: Denies: Fever, Weakness, Fatigue, Malaise, Chills HEENT: Reports: No Symptoms Pulmonary: Denies: Shortness of Breath, Pleuritic Chest Pain, Cough Cardiovascular: Denies: Chest Pain, Palpitations, Dyspnea on Exertion, Lightheadedness Gastrointestinal: Reports: No Symptoms Genitourinary: Reports: No Symptoms Musculoskeletal: Reports: No Symptoms Skin: Reports: No Symptoms Neurological: Denies: Numbness, Paresthesia, Tingling, Difficulty Walking, Weakness, Gait Disturbance Psychiatric: Denies: Confusion, Anxiety, Agitation Systems Review Comment:: No overnight or acute issues. He rested well. No heart palpitations. Heart rate remains sinus rhythm overnight via telemetry. His repeat EKG this AM shows sinus rhythm with a heart rate of 62. - Patient Data Vitals - Most Recent: Last Vital Signs Temp 36.9 C 07/28/18 09:20 Pulse 69 07/28/18 09:41 Resp 20 07/28/18 09:20 BP 111/86 07/28/18 09:41 Pulse Ox 96 07/28/18 09:20 Weight - Most Recent: 83.506 kg I&O - Last 24 Hours: Intake & Output 07/27/18 07/28/18 07/28/18 22:59 06:59 14:59 Intake Total 1525 500 120 Output Total 200 400 Balance 1325 100 120 Imaging Impressions - Last 24 Hours: EKG 02/20/2019 at 01:30 Sinus Rhythm with a heart rate of 62. 2D echo report LVEF of 55-60%. No RWMA. No Valvular Wall Dysfunctions. Lab Results Last 24 Hours: Laboratory Results - last 24 hr 07/28/18 Range/Units 05:34 Sodium 143 (136-145) mEq/L Potassium 4.0 (3.5-5.1) mEq/L Chloride 108 H (98-107) mEq/L Carbon Dioxide 26 (21-32) mEq/L Anion Gap 13.0 (5-15) BUN 24 H (7-18) mg/dL Creatinine 0.8 (0.7-1.3) mg/dL Est Cr Clr Drug Dosing 84.88 mL/min Estimated GFR (MDRD) > 60 (>60) mL/min BUN/Creatinine Ratio 30.0 H (14-18) Glucose 104 (83-115) mg/dL Calcium 8.0 L (8.5-10.1) mg/dL Magnesium 1.9 (1.8-2.4) mg/dl Free T4 1.17 (0.76-1.46) ng/dL TSH 3rd Generation 1.581 (0.358-3.74) uIU/mL Med Orders - Current: Current Medications Acetaminophen (Tylenol) 650 mg PO Q4H PRN PRN Reason: Pain (mild 1-3) Last Admin: 07/28/18 07:45 Dose: 650 mg Hydrocodone Bitart/Acetaminophen ([place] 325-5 Mg) 1 tab PO Q6H PRN PRN Reason: Pain Last Admin: 07/25/18 13:04 Dose: 1 tab Enalapril Maleate (Vasotec) 10 mg PO DAILY [facility] Last Admin: 07/28/18 09:41 Dose: 10 mg Enoxaparin Sodium (Lovenox) 30 mg SUBCUT Q24H [facility] Last Admin: 07/27/18 11:10 Dose: 30 mg Magnesium Sulfate (Pharmacy To Dose - Magnesium Replacement) 0 dose .XX ASDIRECTED PRN PRN Reason: RX TO WATCH MAG Metoprolol Tartrate (Lopressor) 25 mg PO Q12H [facility] Last Admin: 07/28/18 09:41 Dose: 25 mg Morphine Sulfate (Morphine) 1 mg IVPUSH Q2H PRN PRN Reason: Pain Last Admin: 07/24/18 19:16 Dose: 1 mg Ondansetron HCl (Zofran) 4 mg IVPUSH Q8H PRN PRN Reason: Nausea Potassium Chloride (Pharmacy To Dose - Potassium Replacement) 0 dose .XX ASDIRECTED PRN PRN Reason: RX TO WATCH K Tamsulosin HCl (Flomax) 0.4 mg PO DAILY [facility] Last Admin: 07/28/18 09:42 Dose: 0.4 mg Discontinued Medications Hydrocodone Bitart/Acetaminophen ([place] 325-5 Mg) 1 tab PO Q4HR PRN PRN Reason: Pain Bupivacaine HCl (Marcaine 0.5%) Confirm Administered Dose 30 ml .ROUTE .[facility] ONE Stop: 07/23/18 17:45 Last Admin: 07/23/18 19:52 Dose: 10 ml Cefazolin Sodium (Ancef) Confirm Administered Dose 2 gm .ROUTE .[facility] Stop: 07/23/18 18:17 Ephedrine Sulfate (Ephedrine In Ns) Confirm Administered Dose 25 mg .ROUTE [facility] ONE Stop: 07/23/18 19:12 Fentanyl (Sublimaze) Confirm Administered Dose 250 mcg .ROUTE .[facility] Stop: 07/23/18 17:40 Fentanyl (Sublimaze) Confirm Administered Dose 100 mcg .ROUTE .[facility] Stop: 07/23/18 20:10 Fentanyl (Sublimaze) 50 mcg IVPUSH Q5M PRN PRN Reason: Pain Hydromorphone HCl (Dilaudid) 0.5 mg IVPUSH Q2H PRN PRN Reason: Pain Hydromorphone HCl (Dilaudid) 0.5 mg IV Q2H PRN PRN Reason: pain Hydromorphone HCl (Dilaudid) 0.5 mg IVPUSH Q2H PRN PRN Reason: pain Last Admin: 07/24/18 04:52 Dose: 0.5 mg Sodium Chloride (Normal Saline) 1,000 mls @ 100 mls/hr IV ASDIRECTED [facility] Last Admin: 07/23/18 16:45 Dose: 100 mls/hr Lidocaine HCl (Xylocaine-Mpf 1%) Confirm Administered Dose 4 mls @ as directed .ROUTE .[facility] Stop: 07/23/18 17:40 Lactated Ringer's (Ringers, Lactated) Confirm Administered Dose 1,000 mls @ as directed .ROUTE .[facility] Stop: 07/23/18 19:05 Lactated Ringer's (Ringers, Lactated) 1,000 mls @ 100 mls/hr IV ASDIRECTED [facility] Last Admin: 07/24/18 05:11 Dose: 100 mls/hr Sodium Chloride (Normal Saline) 1,000 mls @ 100 mls/hr IV ASDIRECTED [facility] Sodium Chloride (Normal Saline) Confirm Administered Dose 1,000 mls @ as directed .ROUTE .[facility] Stop: 07/24/18 11:12 Last Admin: 07/24/18 12:24 Dose: Not Given Sodium Chloride (Normal Saline) 1,000 mls @ 80 mls/hr IV ASDIRECTED [facility] Last Admin: 07/25/18 02:57 Dose: 80 mls/hr Magnesium Sulfate 2 gm/ Premix 50 mls @ 25 mls/hr IV ONETIME ONE Stop: 07/27/18 12:14 Last Admin: 07/27/18 11:06 Dose: 25 mls/hr Ketamine HCl (Ketalar) Confirm Administered Dose 500 mg .ROUTE .[facility] ONE Stop: 07/23/18 18:07 Ketorolac Tromethamine (Toradol) Confirm Administered Dose 30 mg .ROUTE .[facility]- [facility] ONE Stop: 07/23/18 20:08 Lidocaine HCl (Xylocaine 1%) Confirm Administered Dose 50 ml .ROUTE .[facility] ONE Stop: 07/23/18 17:45 Last Admin: 07/23/18 19:52 Dose: 10 ml Lidocaine HCl (Xylocaine 2% Jelly) Confirm Administered Dose 10 ml .ROUTE .[facility]- MED ONE Stop: 07/24/18 04:33 Last Admin: 07/24/18 10:37 Dose: Not Given Metoprolol Tartrate (Lopressor) 25 mg PO ONETIME ONE Stop: 07/27/18 10:05 Last Admin: 07/27/18 11:07 Dose: 25 mg Potassium Chloride (Klor-Con M20) 40 meq PO BID [facility] Stop: 07/27/18 21:01 Last Admin: 07/27/18 20:53 Dose: 40 meq Propofol (Diprivan 20 Ml) Confirm Administered Dose 200 mg .ROUTE .[facility] ONE Stop: 07/23/18 17:40 Propofol (Diprivan 20 Ml) Confirm Administered Dose 200 mg .ROUTE .[facility] ONE Stop: 07/23/18 18:29 Rocuronium [place] (Zemuron) Confirm Administered Dose 50 mg .ROUTE .[facility] ONE Stop: 07/23/18 19:05 - Exam General: Alert, Oriented, Cooperative HEENT: Pupils Equal, Pupils Reactive, EOMI, Mucous Membr. Moist/Millen Lungs: Clear to Auscultation, Normal Respiratory Effort Cardiovascular: Regular Rate, Regular Rhythm GI/Abdominal Exam: Normal Bowel Sounds, Soft, Non-Tender, No Organomegaly, No Distention, No Abnormal Bruit (Male) Exam: Deferred Back Exam: Normal Inspection, Decreased Range of Motion (2/2 recent inguinal surgery) Extremities: Normal Range of Motion, Non-Tender, No Pedal Edema, Normal Capillary Refill, Limited Range of Motion (on ther ight due to inguinal surgery) Peripheral Pulses: 2+: Dorsalis Pedis (L), Dorsalis Pedis (R) Skin: Warm, Dry, Intact Wound/Incisions: Healing Well, Dressing Dry and Intact, No Drainage. No: Erythema Neurological: No New Focal Deficit (limited due to inguinal surgery but grossly intact). No: Normal Gait Psy/Mental Status: Alert, Normal Affect, Normal Mood. No: Anxious Consult PN Assessment/Plan POD#: 5 Procedures: Procedures ASSAY OF TROPONIN QUANT (09/27/14) C-REACTIVE PROTEIN (09/27/14) CHEST X-RAY 2VW FRONTAL&LATL (09/27/14) COMPLETE CBC W/AUTO DIFF WBC (09/27/14) COMPREHEN METABOLIC PANEL (09/27/14) ELECTROCARDIOGRAM TRACING (09/27/14) EMERGENCY DEPT VISIT (09/27/14) ROUTINE VENIPUNCTURE (09/27/14) THER/PROPH/DIAG INJ IV PUSH (09/27/14) Problem List Initiated/Reviewed/Updated: Yes My Orders Last 24 Hours: My Active Orders 07/27/18 09:26 EKG 12 Lead [EK] Routine 07/27/18 10:15 Pharmacy to Dose - Magnesium R [Pharmacy to Dose - Magnesium Replacement] 0 dose .XX ASDIRECTED PRN Pharmacy to Dose - Potassium R [Pharmacy to Dose - Potassium Replacement] 0 dose .XX ASDIRECTED PRN 07/27/18 11:00 Enoxaparin [Lovenox] 30 mg SUBCUT Q24H 07/27/18 11:34 Acetaminophen [Tylenol] 650 mg PO Q4H PRN 07/27/18 12:54 EKG 12 Lead [EK] Routine 07/27/18 21:00 Metoprolol Tartrate [Lopressor] 25 mg PO Q12H 07/28/18 07:00 EKG 12 Lead [EKG Documentation Completion] [RC] AM Plan: Assessment/Plan: This is a 78 yo elderly white male who recently underwent right inguinal hernia repair status post small bowel resection post operative day #5 and developed sudden onset of atrial fibrillation confirmed by both on telemetry and serial electrocardiogram. Patient has now converted to sinus rhythm and his repeat EKG confirms it this morning. At this point, we have no further recommendations but to continue with his routine home medications and follow up with PCP after discharge. On behalf of the hospitalist team, thank you again Dr. Nicole for the opportunity to participate in the management of this patient. We will now sign off his case.
[2018-07-28] MEDS: Enoxaparin 30 MG/0.3 ML Syringe SUBCUT SCH (11:32)
--- NOTE | 2018-07-29 07:23 | DISCH ---
ADMISSION DATE: 07/23/2018 DISCHARGE DATE: 07/28/2018 This is a 78-year-old who developed pain in the right groin about 1 o'clock and finally came into the emergency room. He was found to have an incarcerated; what was felt to be the inguinal hernia. He had repaired of his hernia twice on the left and once on the right by Dr. Banks in the past. PAST MEDICAL HISTORY: Hypertension. CURRENT MEDICATIONS: Per medication reconciliation form. He also had BPH symptoms. PHYSICAL EXAMINATION: GENERAL: Alert, cooperative, male. EYES, EARS, NOSE, AND THROAT: Unremarkable. NECK: Supple. LUNGS: Clear. HEART: Heart tones regular rate. ABDOMEN: Soft. Inguinal region shows a bulge in the right inguinal area which was quite tender. HOSPITAL COURSE: The patient was brought to the operating room. His emergency procedure found to have an incarcerated ileum in the femoral hernia with necrotic bowel. The bowel was resected and a Jono hernia repair was performed. The patient's postoperative course was marked by fainting episode the next day about 4 o'clock in the morning, which was reviewed and associated with rectal bleeding. He is watched, observed, and eventually transfused 2 units of blood for bleeding from the anastomosis. His serial hemoglobins were taken. This subsided without further problems. His diet was advanced and GI function returned. Following the next day, the patient developed also some bladder outlet obstruction, requiring catheterization and then was placed on Flomax and he also day before discharge developed atrial fib, which was evaluated by the hospitalist, felt to be due to anxiety. He was started on metoprolol and Lovenox. The Lovenox was held because of his GI bleed until down. He is treated with SCDs. Patient reached maximum hospital benefit. His wound was healing without problem. He is up and ambulating and will be discharged on metoprolol, lisinopril, 1 aspirin a day and Flomax and followed up in the clinic. CONDITION ON DISCHARGE: Improved. No work, strenuous exercise. DIAGNOSES: Episode of atrial fibrillation, episode of bladder outlet obstruction, episode of GI bleed, resolved and anemia, transfusion 2 units and finally incarcerated femoral hernia treated with surgery and resection of bowel. FINAL DIAGNOSIS: DISCHARGE MEDICATIONS: DIET: ACTIVITY: FOLLOW-UP: [facility] /[id number]
== END 2018-07-28 12:02 | disposition home or self-care (01) | DRG 351 ==
LOC: JD.ED 15:04 → JD.SDS 17:35 → JD.MS 20:40
PROVIDERS: ADMIT Surgery; ATTEND Surgery
PROC: 0YU Anatomical Regions, Lower Extremities, Supplement (ICD-10-PCS; principal; 2018-07-23)
PROC: 30233N1 Transfusion of Nonautologous Red Blood Cells into Peripheral Vein, Percutaneous Approach (ICD-10-PCS; 2018-07-24)
DX: K40.30 Unilateral inguinal hernia, with obstruction, without gangrene, not specified as recurrent (principal); K41.30 Unilateral femoral hernia, with obstruction, without gangrene, not specified as recurrent; N13.8 Other obstructive and reflux uropathy; N40.0 Benign prostatic hyperplasia without lower urinary tract symptoms; K55.9 Vascular disorder of intestine, unspecified; K91.840 Postprocedural hemorrhage of a digestive system organ or structure following a digestive system procedure; I10 Essential (primary) hypertension; K21.9 Gastro-esophageal reflux disease without esophagitis; M19.90 Unspecified osteoarthritis, unspecified site; F41.9 Anxiety disorder, unspecified; R10.30 Lower abdominal pain, unspecified; R10.2 Pelvic and perineal pain; M54.9 Dorsalgia, unspecified; I48.91 Unspecified atrial fibrillation; H54.7 Unspecified visual loss; H91.90 Unspecified hearing loss, unspecified ear; R42 Dizziness and giddiness; N40.1 Benign prostatic hyperplasia with lower urinary tract symptoms; Y83.2 Surgical operation with anastomosis, bypass or graft as the cause of abnormal reaction of the patient, or of later complication, without mention of misadventure at the time of the procedure; Z90.79 Acquired absence of other genital organ(s); Z79.899 Other long term (current) drug therapy; Z86.010 Personal history of colon polyps; Z79.82 Long term (current) use of aspirin
CPT/HCPCS: 36415; 80053; 81001; 85007; 85027; 88307; 96360; 99285; J0690; J1885; J2001; J2704 ×2; J3010 ×2; J3490; J7040; J7050; J7120 ×2; 00840; 36430; 51701; 51798; 80048; 83735; 84439; 84443; 85014; 85018; 85025; 86850; 86900; 86901; 86922; 93005; 93306; 94760; 99284; A9270-GY; J1170; J1650; J2270; J3475; P9016

== ENCOUNTER → 2021-07-11 | Day surgery (SDC) | payer MEDICARE, OTHER ==
[2021-07-11] MEDS: Polymyxin B/Trimethoprim 10 ML Bottle EYERT SCH ×4 (07:43→09:10)
[2021-07-11] MEDS: Brimonidine 0.2% Ophth Soln 5 ML Bottle EYERT SCH ×4 (07:47→09:10)
[2021-07-11] MEDS: Phenylephrine 2.5% Ophth Soln 2 ML Bot EYERT SCH ×6 (07:50→08:56)
[2021-07-11] MEDS: Tropicamide 1% Ophth Soln 15 ML Bottle EYERT SCH ×4 (07:53→08:22)
[2021-07-11] MEDS: Tetracaine HCl/PF 0.5% 4 ML Bottle EYEBOTH SCH ×3 (08:30→08:56)
[2021-07-11] MEDS: Lidocaine 1% PF 2 ML SDV INJECT SCH ×2 (08:54→08:57)
[2021-07-11] MEDS: Pilocarpine 4% Ophth Soln 15 ML Bot EYERT SCH ×2 (08:57→09:10)
[2021-07-11] MEDS: Cefuroxime 10 MG/ML SYRINGE EYERT SCH ×2 (08:57→09:08)
[2021-07-11 09:33] VITALS: BP 155/84; PULSE 57
== END ==
LOC: JD.SDS 07:44
PROVIDERS: ATTEND Ophthalmology
DX: H25.813 Combined forms of age-related cataract, bilateral (principal); H21.81 Floppy iris syndrome; H21.41 Pupillary membranes, right eye; I10 Essential (primary) hypertension; Z98.890 Other specified postprocedural states; K21.9 Gastro-esophageal reflux disease without esophagitis
CPT/HCPCS: 66982; J0697; C1780

== ENCOUNTER 2021-08-17 09:41 | Day surgery (SDC) | payer MEDICARE, OTHER ==
[2021-08-17] MEDS: Polymyxin B/Trimethoprim 10 ML Bottle EYELF SCH ×4 (10:07→11:39)
[2021-08-17] MEDS: Brimonidine 0.2% Ophth Soln 5 ML Bottle EYELF SCH ×4 (10:12→11:39)
[2021-08-17] MEDS: Phenylephrine 2.5% Ophth Soln 2 ML Bot EYELF SCH ×6 (10:15→11:18)
[2021-08-17] MEDS: Tropicamide 1% Ophth Soln 15 ML Bottle EYELF SCH ×4 (10:18→10:45)
[2021-08-17] MEDS: Tetracaine HCl/PF 0.5% 4 ML Bottle EYEBOTH SCH ×5 (10:56→11:22)
[2021-08-17] MEDS: Cefuroxime 10 MG/ML SYRINGE EYELF SCH ×2 (11:11→11:38)
[2021-08-17] MEDS: Lidocaine 1% PF 2 ML SDV INJECT SCH ×2 (11:11→11:21)
[2021-08-17] MEDS: Pilocarpine 4% Ophth Soln 15 ML Bot EYELF SCH ×2 (11:12→11:39)
[2021-08-17 11:49] VITALS: BP 122/74; PULSE 61
== END 2021-08-17 11:48 | disposition home or self-care (01) ==
LOC: JD.SDS 09:41
PROVIDERS: ATTEND Ophthalmology
DX: H25.812 Combined forms of age-related cataract, left eye (principal); H21.81 Floppy iris syndrome; H21.42 Pupillary membranes, left eye; I10 Essential (primary) hypertension; K21.9 Gastro-esophageal reflux disease without esophagitis; Z98.890 Other specified postprocedural states
CPT/HCPCS: 66982; C1780; J0697